=== PATIENT | female | born 1945 | race Caucasian/White ===

== ENCOUNTER → 2016-04-26 | Outpatient (CLI) | payer MEDICARE, OTHER ==
[2016-04-26 09:38] LABS: CHLORIDE,CL 105 mmol/L (98-110); SODIUM,NA 142 mmol/L (136-146)
== END ==
LOC: MW.CHIM 08:45
PROVIDERS: ATTEND Internal Medicine
DX: E78.5 Hyperlipidemia, unspecified (principal); I10 Essential (primary) hypertension; E66.9 Obesity, unspecified; E78.00 Pure hypercholesterolemia, unspecified; E11.59 Type 2 diabetes mellitus with other circulatory complications
CPT/HCPCS: 36415; 80053; 80061; 83036; 84439; 84443; 85025

== ENCOUNTER → 2016-04-27 | Outpatient (CLI) | payer MEDICARE, OTHER ==
--- NOTE | 2016-04-27 14:17 | CR ---
EXAMINATION: Two-view chest (PA and Lateral views). HISTORY: Cough. FINDINGS: The trachea is midline. The cardiomediastinal silhouette is within normal limits. No pulmonary infil trates, effusions or pneumothorax. There is a tiny calcified granuloma within the mid left lung. Osseous structures appear unremarkable. IMPRESSION: No acute cardiopulmonary process.
== END ==
LOC: MW.CHIM 12:11
PROVIDERS: ATTEND Internal Medicine
DX: R05 Cough (principal); R00.2 Palpitations; E78.5 Hyperlipidemia, unspecified; I10 Essential (primary) hypertension
CPT/HCPCS: 71020; 71020-26; 99214

== ENCOUNTER → 2016-05-05 | Outpatient (CLI) | payer MEDICARE, OTHER ==
[~2016-05-05] MED LIST: Albuterol 0.083% 2.5 MG/3 ML Neb Soln NEB ONE; Albuterol 0.083% 2.5 MG/3 ML Neb Soln ONE
== END ==
LOC: MW.RT 09:08
PROVIDERS: ATTEND Internal Medicine
DX: I10 Essential (primary) hypertension (principal); R00.2 Palpitations

== ENCOUNTER → 2016-05-18 | Outpatient (CLI) | payer MEDICARE, OTHER | LOC: MW.CHIM 08:00 | PROVIDERS: ATTEND Internal Medicine | DX: R00.2 Palpitations (principal) | CPT/HCPCS: G0463 ==

== ENCOUNTER 2016-10-12 19:14 | Emergency (ER) | payer MEDICARE, OTHER ==
[2016-10-12 20:07] LABS: CHLORIDE,CL 107 mmol/L (98-110); SODIUM,NA 140 mmol/L (136-146)
--- NOTE | 2016-10-12 20:09 | EDM.PDOC ---
ED HPI GENERAL MEDICAL PROBLEM - General Chief Complaint: Cardiovascular Problem Stated Complaint: ABDOMINAL FAST HEART BEAT Time Seen by Provider: 10/12/16 19:40 Source of Information: Reports: Patient, Family History Limitations: Reports: No Limitations - History of Present Illness INITIAL COMMENTS - FREE TEXT/NARRATIVE: History of present illness: [71-year-old female comes in complaining of palpitations. Patient has had a history of the same last summer but there was self-limiting and she has been worked up with a Holter monitor where there were no events recorded. Patient indicates she can feel her heart beating strongly in her throat and she can feel when she misses beats. Patient sees Dr. Mitchell got for her cardiology issues and wanted to come in and ensure that there was nothing remiss that would require her to have an intervention.] Review of systems: As per history of present illness and below otherwise all systems reviewed and negative. Past medical history: As per history of present illness and as reviewed below otherwise noncontributory. Surgical history: As per history of present illness and as reviewed below otherwise noncontributory. Social history: No reported history of drug or alcohol abuse. Family history: As per history of present illness and as reviewed below otherwise noncontributory. Physical exam: HEENT: Atraumatic, normocephalic, pupils reactive, negative for conjunctival pallor or scleral icterus, mucous membranes moist, throat clear, neck supple, nontender, trachea midline. Lungs: Clear to auscultation, breath sounds equal bilaterally, chest nontender. Heart: S1S2, regular, negative for clicks, rubs, or JVD. Abdomen: Soft, protuberant nontender. Negative for masses or hepatosplenomegaly. Negative for costovertebral tenderness. Pelvis: Stable nontender. Genitourinary: Deferred. Rectal: Deferred. Extremities: Atraumatic, negative for cords or calf pain. Neurovascular unremarkable. Neuro: Awake, alert, oriented. Cranial nerves II through XII unremarkable. Cerebellum unremarkable. Motor and sensory unremarkable throughout. Exam nonfocal. Global assessment is benign without signs of palpitation and or arrhythmia on EKG. 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 - Related Data Allergies Allergy/AdvReac Type Severity Reaction Status Date / Time ciprofloxacin [From Cipro] Allergy Nausea Verified 10/12/16 19:19 ciprofloxacin HCl Allergy Nausea Verified 10/12/16 19:19 [From Cipro] codeine Allergy Nausea Verified 10/12/16 19:19 NSAIDS (Non-Steroidal Allergy Cannot Verified 01/18/16 19:00 Anti-Inflamma Remember Home Meds: Home Meds Acetaminophen/HYDROcodone [HYDROcodone-Acetaminophen 5-500] 1 tab PO Q4H PRN [History] Fish Oil/[place]-3 Fatty Acids [Fish Oil] 1,000 mg PO BID 09/30/13 [History] Losartan [Cozaar] 100 mg PO DAILY 09/30/13 [History] Lutein 40 mg PO DAILY 09/30/13 [History] Omeprazole 20 mg PO DAILY 09/30/13 [History] Travoprost [Travatan Z 0.004% Ophth Soln] 1 drop EYEBOTH BEDTIME 09/30/13 [ History] Zinc 50 mg PO DAILY 12/08/13 [History] amLODIPine [Norvasc] 2.5 mg PO BEDTIME 02/05/15 [History] Diclofenac Topical Ointment 1 TOP BID 01/18/16 [History] Furosemide [Lasix] 20 mg PO DAILY 01/18/16 [History] Lactobacillus Combo No.10 [Probiotic] 1 each PO DAILY 01/18/16 [History] atorvaSTATin [Lipitor] 10 mg PO DAILY 01/18/16 [History] metroNIDAZOLE [Flagyl] 500 mg PO Q8H #36 tablet 01/20/16 [Rx] Past Medical History HEENT History: Reports: Glaucoma Cardiovascular History: Reports: Hypertension Respiratory History: Reports: None Gastrointestinal History: Reports: Diverticulosis, Irritable Bowel Syndrome, Other (See Below) Other Gastrointestinal History: Diverticulitis about a month ago 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: Musculoskeletal History: Reports: Arthritis, Back Pain, Chronic Other Musculoskeletal History: chronic back and shoulder pain Neurological History: Reports: None Psychiatric History: Reports: None Endocrine/Metabolic History: Reports: Obesity/BMI 30+ Hematologic History: Reports: Blood Transfusion(s) Other Hematologic History: blood transfusion following hysterectomy Immunologic History: Reports: None Oncologic (Cancer) History: 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, Other (See Below) Other Oncologic History: Endomitrial Dermatologic History: Reports: None - Past Surgical History HEENT Surgical History: Reports: Cataract Surgery Female Surgical History: 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 Biopsy, Hysterectomy, Other (See Below) Musculoskeletal Surgical History: Reports: Hip Replacement, Knee Replacement Social & Family History - Family History Cardiac: Reports: Hypertension, [place] Neurological: Reports: TIA - Tobacco Use Smoking Status *Q: Never Smoker Second Hand Smoke Exposure: No - Caffeine Use Caffeine Use: Reports: Coffee - Alcohol Use Days Per Week of Alcohol Use: 0 - Recreational Drug Use Recreational Drug Use: No ED ROS GENERAL - Review of Systems Review Of Systems: See Below (See history of present illness) ED EXAM, GENERAL - Physical Exam Exam: See Below (See history of present illness) Course - Vital Signs Last Recorded V/S: Last Vital Signs Temp 36.8 C 10/12/16 19:14 Pulse 104 H 10/12/16 19:14 Resp 18 10/12/16 19:14 BP 185/86 H 10/12/16 19:14 Pulse Ox 95 10/12/16 19:14 - Orders/Labs/Meds Orders: Active Orders 24 hr Category Date Time Status Cardiac Monitoring [RC] . DIRECTED Care 10/12/16 19:35 Active EKG Documentation Completion [RC] STAT Care 10/12/16 19:14 Active Chest 1V Frontal [CR] Stat Exams 10/12/16 19:35 Ordered COMPREHENSIVE METABOLIC PN,CMP [CHEM] Stat Lab 10/12/16 19:40 Received Labs: Laboratory Tests 10/12/16 10/12/16 10/12/16 Range/Units 19:40 19:40 19:40 WBC 11.32 H (4.0-11.0) K/uL RBC 4.37 (4.30-5.90) M/uL Hgb 12.5 (12.0-16.0) g/dL Hct 38.8 (36.0-46.0) % MCV 88.8 (80.0-98.0) fL MCH 28.6 (27.0-32.0) pg MCHC 32.2 (31.0-37.0) g/dL RDW Std Deviation 52.3 (28.0-62.0) fl RDW Coeff of Navin 16 H (11.0-15.0) % Plt Count 336 (150-400) K/uL MPV 10.40 (7.40-12.00) fL Neut % (Auto) 61.2 (48.0-80.0) % Lymph % (Auto) 28.1 (16.0-40.0) % [place] % (Auto) 8.7 (0.0-15.0) % Eos % (Auto) 1.8 (0.0-7.0) % Baso % (Auto) 0.2 (0.0-1.5) % Neut # (Auto) 6.9 H (1.4-5.7) K/uL Lymph # (Auto) 3.2 H (0.6-2.4) K/uL [place] # (Auto) 1.0 H (0.0-0.8) K/uL Eos # (Auto) 0.2 (0.0-0.7) K/uL Baso # (Auto) 0.0 (0.0-0.1) K/uL Nucleated RBC % 0.0 /100WBC Nucleated RBCs # 0 K/uL INR 0.98 (0.86-1.11) Troponin I < 0.10 (0.0-0.29) NG/ML Departure - Departure Time of Disposition: 20:18 Disposition: Home, Self-Care 01 Condition: Good Clinical Impression: Heart palpitations Referrals: PCP,None [Primary Care Provider] - Additional Instructions: The following information is given to patients seen in the emergency department who are being discharged to home. This information is to outline your options for follow-up care. We provide all patients seen in our emergency department with a follow-up referral. The need for follow-up, as well as the timing and circumstances, are variable depending upon the specifics of your emergency department visit. If you don't have a primary care physician on staff, we will provide you with a referral. We always advise you to contact your personal physician following an emergency department visit to inform them of the circumstance of the visit and for follow-up with them and/or the need for any referrals to a consulting specialist. The emergency department will also refer you to a specialist when appropriate. This referral assures that you have the opportunity for follow-up care with a specialist. All of these measure are taken in an effort to provide you with optimal care, which includes your follow-up. Under all circumstances we always encourage you to contact your private physician who remains a resource for coordinating your care. When calling for follow-up care, please make the office aware that this follow-up is from your recent emergency room visit. If for any reason you are refused follow-up, please contact the [facility] Emergency Department at and asked to speak to the emergency department charge nurse. Follow-up with primary care provider one to 2 days Follow up with your experienced truck driver as soon as possible please call in the morning for a first available appointment to discuss this intermittent palpitations that you're experiencing again Return to ED as needed as discussed
[2016-10-12 21:54] VITALS: BP 139/65
--- NOTE | 2016-10-13 17:10 | CR ---
EXAM DATE: 10/12/16 PATIENT'S AGE: 71 Patient: CARMEN JENKINS Facility: [place], [place] Site . Site : 1945 Study: XRay Chest [id number] 8:37:35 PM Ordering Physician: Nella Zapata Final Report: Indication: Palpitations. Technique: Chest 1 view Comparison: 04/27/2016. Findings/Impression: Cardiovascular and mediastinum: Stable cardiomediastinal silhouette. An ectatic , unfolded aorta again seen. Lungs and pleural space: No consolidation or pleural effusions. A left midlung granuloma again seen. Bones and soft tissues: No significant change. Dictated by Sidney Gale MD @ 10/12/2016 8:55:37 PM Dictated by: Sidney Gale MD @ 10/12/2016 20:55:42 (Electronic Signature) Report Signed by Proxy. [facility] PS[facility] CENTERShanique
== END 2016-10-12 21:22 | disposition home or self-care (01) ==
LOC: MW.ED 19:14
DX: R00.2 Palpitations (principal); I10 Essential (primary) hypertension; M19.90 Unspecified osteoarthritis, unspecified site; E66.9 Obesity, unspecified; Z90.710 Acquired absence of both cervix and uterus; Z85.3 Personal history of malignant neoplasm of breast; Z98.49 Cataract extraction status, unspecified eye; Z96.659 Presence of unspecified artificial knee joint; Z96.649 Presence of unspecified artificial hip joint; Z79.899 Other long term (current) drug therapy; Z88.1 Allergy status to other antibiotic agents; Z88.5 Allergy status to narcotic agent; Z88.8 Allergy status to other drugs, medicaments and biological substances; Z68.41 Body mass index [BMI] 40.0-44.9, adult
CPT/HCPCS: 36415; 71010; 71010-26; 80053; 84484; 85025; 85610; 93005; 99283; 99285-25

== ENCOUNTER 2017-03-29 15:06 | Emergency (ER) | payer MEDICARE, OTHER ==
[2017-03-29] MEDS ORDERED: Ondansetron 4 MG/2 ML SDV IVPUSH ONE (15:10)
[2017-03-29] MEDS ORDERED: Sodium Chloride 0.9% 500 ML IV SCH (15:15)
[2017-03-29] MEDS ORDERED: Morphine 2 MG/ML Syringe IVPUSH ONE (15:26)
--- NOTE | 2017-03-29 15:34 | EDM.PDOC ---
ED HPI GENERAL MEDICAL PROBLEM - General Chief Complaint: Abdominal Pain Stated Complaint: ABDOMINAL PAIN Time Seen by Provider: 03/29/17 15:19 Source of Information: Reports: Patient History Limitations: Reports: No Limitations - History of Present Illness INITIAL COMMENTS - FREE TEXT/NARRATIVE: HISTORY AND PHYSICAL: History of present illness: Patient is a 71-year-old female who presents to the emergency room with complaints of lower quadrant pain. She states she has a history of diverticulitis with her last flare being January 2016. She states this pain is very similar and is requesting oral antibiotics. She reports she has been taking her [place] and topical diclofenac cream which she uses for arthritis, but medications have not touched her abdominal pain. Patient denies any fever, chills, chest pain, shortness of breath, vomiting or diarrhea. She has had some intermittent nausea but is currently free of nausea. Denies any dysuria. Noticed a small amount of blood mixed in with her stool with her last bowel movement. States her bowel movements are loose but is not described them as diarrhea. Past medical history of hypertension, glaucoma, breast and endometrial cancer, macular degeneration and arthritis. Review of systems: As per history of present illness and below otherwise all systems reviewed and negative. Past medical history: As per history of present illness and as reviewed below otherwise noncontributory. Surgical history: As per history of present illness and as reviewed below otherwise noncontributory. Social history: No reported history of drug or alcohol abuse. Family history: As per history of present illness and as reviewed below otherwise noncontributory. Physical exam: General: Well-developed and well-nourished 71-year-old female. Alert and oriented. Nontoxic appearing and in no acute distress. HEENT: Atraumatic, normocephalic, pupils reactive, negative for conjunctival pallor or scleral icterus, mucous membranes moist, throat clear, neck supple, nontender, trachea midline. Lungs: Clear to auscultation, breath sounds equal bilaterally, chest nontender. Heart: S1S2, regular rate and rhythm Abdomen: Soft, obese, nondistended, mild tenderness to LLQ. Negative for masses or hepatosplenomegaly. Negative for costovertebral tenderness. Pelvis: Stable nontender. Genitourinary: Deferred. Rectal: Deferred. Extremities: Atraumatic, negative for cords or calf pain. Neurovascular unremarkable. Neuro: Awake, alert, oriented. Cranial nerves II through XII unremarkable. Cerebellum unremarkable. Motor and sensory unremarkable throughout. Exam nonfocal. WBC (16) and slightly elevated lipase. Will treat with Flagyl 500 mg 3 times a day 7 days. Augmentin twice a day 7 days (medication chosen due to Cipro allergy and cuurent home medication interactions). Supportive care measures were discussed with patient. Encouraged her to have follow-up with her primary care provider in the next couple days. She voices understanding and is agreeable to plan of care. She denies any further questions at this time. Diagnostics: CBC, CMP, amylase, lipase, UA, CT abdomen and pelvis Therapeutics: IV fluid, morphine, zofran Impression: 1. Abdominal Pain 2. Diverticulitis Plan: 1. Please take the antibiotics as discussed, Augmentin and Flagyl. (NO ALCOHOL consumption while taking Flagyl and 1-2 days post medication, as it may cause severe GI upset). [place] diet for the next 24-48 hours. Encourage plenty of fluids to prevent dehydration. 2. Follow-up with your primary caregiver in the next 2-3 days. Return to the ED as needed and as discussed. Definitive disposition and diagnosis as appropriate pending reevaluation and review of above. Duration: Day(s): Location: Reports: Abdomen abd. pain Pain Score (Numeric/FACES): 9 - Related Data Allergies Allergy/AdvReac Type Severity Reaction Status Date / Time ciprofloxacin [From Cipro] Allergy Nausea Verified 03/29/17 15:17 ciprofloxacin HCl Allergy Nausea Verified 03/29/17 15:17 [From Cipro] codeine Allergy Nausea Verified 03/29/17 15:17 NSAIDS (Non-Steroidal Allergy Cannot Verified 03/29/17 15:17 Anti-Inflamma Remember Home Meds: Home Meds Amoxicillin/Clavulanate K [Augmentin 875-125 MG] 1 tab PO BID 7 Days #14 tablet 03/29/17 [Rx] Atenolol 25 mg PO DAILY 03/29/17 [History] Dorzolamide [Trusopt 2% Ophth Soln] 10 ml OP BID 03/29/17 [History] Furosemide [Lasix] 20 mg PO DAILY 03/29/17 [History] Hydrocodone/Acetaminophen [Hydrocodon-Acetaminophen 5-300] 1 each PO DAILY 03/29 [History] Losartan [Cozaar] 100 mg PO DAILY 03/29/17 [History] Timolol [Betimol] 1 drop OP BID 03/29/17 [History] Travoprost [Travatan Z 0.004% Ophth Soln] 1 drop OP BEDTIME 03/29/17 [History] metroNIDAZOLE [Flagyl] 500 mg PO TID 7 Days #21 tab 03/29/17 [Rx] Past Medical History HEENT History: Reports: Glaucoma Cardiovascular History: Reports: Hypertension Respiratory History: Reports: None Gastrointestinal History: Reports: Diverticulosis, Irritable Bowel Syndrome, Other (See Below) Other Gastrointestinal History: Diverticulitis about a month ago 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: Musculoskeletal History: Reports: Arthritis, Back Pain, Chronic Other Musculoskeletal History: chronic back and shoulder pain Neurological History: Reports: None Psychiatric History: Reports: None Endocrine/Metabolic History: Reports: Obesity/BMI 30+ Hematologic History: Reports: Blood Transfusion(s) Other Hematologic History: blood transfusion following hysterectomy Immunologic History: Reports: None Oncologic (Cancer) History: 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, Other (See Below) Other Oncologic History: Endomitrial Dermatologic History: Reports: None - Past Surgical History HEENT Surgical History: Reports: Cataract Surgery Female Surgical History: 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 Biopsy, Hysterectomy, Other (See Below) Musculoskeletal Surgical History: Reports: Hip Replacement, Knee Replacement Social & Family History - Family History Cardiac: Reports: Hypertension, [place] Neurological: Reports: TIA - Tobacco Use Smoking Status *Q: Never Smoker Second Hand Smoke Exposure: No - Caffeine Use Caffeine Use: Reports: Coffee - Alcohol Use Days Per Week of Alcohol Use: 0 - Recreational Drug Use Recreational Drug Use: No ED ROS GENERAL - Review of Systems Review Of Systems: ROS reveals no pertinent complaints other than HPI. ED EXAM, GI/ABD - Physical Exam Exam: See Below (See dictation) Course - Vital Signs Last Recorded V/S: Last Vital Signs Temp 97.2 F 03/29/17 15:18 Pulse 64 03/29/17 17:10 Resp 14 03/29/17 17:10 BP 179/79 H 03/29/17 17:10 Pulse Ox 93 L 03/29/17 17:10 - Orders/Labs/Meds Orders: Active Orders 24 hr Category Date Time Status Abdomen Pelvis w Cont [CT] Stat Exams 03/29/17 15:10 Taken Sodium Chloride 0.9% [Normal Saline] 500 ml Med 03/29/17 15:15 Active IV STAT Medication Orders Sodium Chloride (Normal Saline) 500 mls @ 999 mls/hr IV STAT OPHELIA Last Admin: 03/29/17 15:34 Dose: 999 mls/hr Labs: Laboratory Tests 03/29/17 03/29/17 03/29/17 Range/Units 15:30 15:30 16:41 WBC 16.24 H (4.0-11.0) K/uL RBC 4.64 (4.30-5.90) M/uL Hgb 13.2 (12.0-16.0) g/dL Hct 41.0 (36.0-46.0) % MCV 88.4 (80.0-98.0) fL MCH 28.4 (27.0-32.0) pg MCHC 32.2 (31.0-37.0) g/dL RDW Std Deviation 53.1 (28.0-62.0) fl RDW Coeff of Navin 16 H (11.0-15.0) % Plt Count 330 (150-400) K/uL MPV 10.80 (7.40-12.00) fL Neut % (Auto) 69.0 (48.0-80.0) % Lymph % (Auto) 19.6 (16.0-40.0) % [place] % (Auto) 10.0 (0.0-15.0) % Eos % (Auto) 1.2 (0.0-7.0) % Baso % (Auto) 0.2 (0.0-1.5) % Neut # (Auto) 11.2 H (1.4-5.7) K/uL Lymph # (Auto) 3.2 H (0.6-2.4) K/uL [place] # (Auto) 1.6 H (0.0-0.8) K/uL Eos # (Auto) 0.2 (0.0-0.7) K/uL Baso # (Auto) 0.0 (0.0-0.1) K/uL Nucleated RBC % 0.0 /100WBC Nucleated RBCs # 0 K/uL Sodium 138 (136-146) mmol/L Potassium 4.4 (3.5-5.1) mmol/L Chloride 105 (98-110) mmol/L Carbon Dioxide 24 (21-31) mmol/L BUN 17 (6.0-23.0) mg/dL Creatinine 0.7 (0.6-1.5) mg/dL Est Cr Clr Drug Dosing 52.18 mL/min Estimated GFR (MDRD) > 60.0 ml/min Glucose 103 (60-110) mg/dL Calcium 9.8 (8.8-10.8) mg/dL Total Bilirubin 0.4 (0.1-1.5) mg/dL AST 22 (5-40) IU/L ALT 24 (8-54) IU/L Alkaline Phosphatase 134 (40-150) Total Protein 8.1 H (6.0-8.0) g/dL Albumin 4.2 (3.4-4.8) g/dL Globulin 3.9 H (2.0-3.5) g/dL Albumin/Globulin Ratio 1.1 L (1.3-2.8) Amylase 70 (10-90) U/L Lipase 89 H (7-80) U/L Urine Color YELLOW Urine Appearance CLEAR Urine pH 6.5 (5.0-8.0) Ur Specific [place] 1.010 (1.001-1.035) Urine Protein NEGATIVE (NEGATIVE) mg/dL Urine Glucose (UA) NEGATIVE (NEGATIVE) mg/dL Urine Ketones NEGATIVE (NEGATIVE) mg/dL Urine Occult Blood NEGATIVE (NEGATIVE) Urine Nitrite NEGATIVE (NEGATIVE) Urine Bilirubin NEGATIVE (NEGATIVE) Urine Urobilinogen 0.2 (<2.0) EU/dL Ur Leukocyte Esterase NEGATIVE (NEGATIVE) Urine RBC 0-1 (0-2/HPF) Urine WBC 0-2 (0-5/HPF) Ur Epithelial Cells RARE (NONE-FEW) Urine Bacteria RARE (NEGATIVE) Meds: Medications Generic Name Dose Route Start Last Admin Trade Name Freq PRN Reason Stop Dose Admin Sodium Chloride 500 mls @ 999 mls/hr 03/29/17 15:15 03/29/17 15:34 Normal Saline IV 999 mls/hr STAT OPHELIA Administration Discontinued Medications Generic Name Dose Route Start Last Admin Trade Name Freq PRN Reason Stop Dose Admin Iopamidol 100 ml 03/29/17 16:28 03/29/17 16:33 Isovue Multipack-370 (76%) IVPUSH 03/29/17 16:29 100 ml ONETIME STA Administration Morphine Sulfate 2 mg 03/29/17 15:26 03/29/17 15:34 Morphine IVPUSH 03/29/17 15:27 2 mg ONETIME ONE Administration Ondansetron HCl 4 mg 03/29/17 15:10 03/29/17 15:34 Zofran IVPUSH 03/29/17 15:11 4 mg ONETIME ONE Administration Departure - Departure Time of Disposition: 17:58 Disposition: Home, Self-Care 01 Clinical Impression: Diverticulitis - Discharge Information Prescriptions: Amoxicillin/Clavulanate K [Augmentin 875-125 MG] 1 tab PO BID 7 Days #14 tablet metroNIDAZOLE [Flagyl] 500 mg PO TID 7 Days #21 tab Referrals: Steven Mitchell MD [Primary Care Provider] - Forms: ED Department Discharge Additional Instructions: My general discharge The following information is given to patients seen in the emergency department who are being discharged to home. This information is to outline your options for follow-up care. We provide all patients seen in our emergency department with a follow-up referral. The need for follow-up, as well as the timing and circumstances, are variable depending upon the specifics of your emergency department visit. If you don't have a primary care physician on staff, we will provide you with a referral. We always advise you to contact your personal physician following an emergency department visit to inform them of the circumstance of the visit and for follow-up with them and/or the need for any referrals to a consulting specialist. The emergency department will also refer you to a specialist when appropriate. This referral assures that you have the opportunity for follow-up care with a specialist. All of these measure are taken in an effort to provide you with optimal care, which includes your follow-up. Under all circumstances we always encourage you to contact your private physician who remains a resource for coordinating your care. When calling for follow-up care, please make the office aware that this follow-up is from your recent emergency room visit. If for any reason you are refused follow-up, please contact the [facility] Emergency Department at and asked to speak to the emergency department charge nurse. [facility] [address] [place] [id number] 1. Please take the antibiotics as discussed, Augmentin and Flagyl. (NO ALCOHOL consumption while taking Flagyl and 1-2 days post medication, as it may cause severe GI upset). [place] diet for the next 24-48 hours. Encourage plenty of fluids to prevent dehydration. 2. Follow-up with your primary caregiver in the next 2-3 days. Return to the ED as needed and as discussed. - My Orders Last 24 Hours: My Active Orders 03/29/17 15:10 Abdomen Pelvis w Cont [CT] Stat 03/29/17 15:15 Sodium Chloride 0.9% [Normal Saline] 500 ml IV STAT - Assessment/Plan Last 24 Hours: My Active Orders 03/29/17 15:10 Abdomen Pelvis w Cont [CT] Stat 03/29/17 15:15 Sodium Chloride 0.9% [Normal Saline] 500 ml IV STAT
[2017-03-29 16:01] LABS: CHLORIDE,CL 105 mmol/L (98-110); SODIUM,NA 138 mmol/L (136-146)
[2017-03-29] MEDS ORDERED: Iopamidol 755 MG/ML 500 ML Multipack Bottle IVPUSH STA (16:28)
[2017-03-29 18:07] VITALS: BP 172/75
--- NOTE | 2017-03-30 13:32 | CT ---
EXAM DATE: 03/29/17 PATIENT'S AGE: 71 Patient: CARMEN JENKINS Facility: [place], [place] Site . Site : 1945 Study: CT Abdomen/Pelvis [id number]/21/2018 4:53:47 PM Ordering Physician: Doctor Paul Final Report: INDICATION: Left lower quadrant pain TECHNIQUE: CT abdomen and pelvis acquired with IV contrast. COMPARISON: 01/18/2016 FINDINGS: Lower chest: A 5 millimeter posteromedial left lower lobe nodule again seen on image 19, apparently slightly decreased in prominence. Liver: Unremarkable. Spleen: Unremarkable. Pancreas: Unremarkable. Gallbladder and bile ducts: Cholecystectomy. Central biliary dilatation again seen, slightly increased in prominence, with the proximal extrahepatic duct measuring 1.6 centimeters. Adrenal glands: A 7 millimeter fat attenuation right adrenal nodule again seen compatible with a small myelolipoma. Kidneys: A ptotic right kidney. No hydronephrosis. A 9 millimeter fat attenuation lesion in the left renal upper pole again seen, compatible with a small angiomyolipoma. Additional subcentimeter renal low-density lesions, too small to characterize, statistically representing cysts. Perirenal changes, nonspecific. GI tract: Prominence of the gastric antral wall could be related to incomplete distention. No mechanical bowel obstruction. A normal appendix. Colonic diverticulosis with a segment of wall thickening and adjacent stranding in the distal descending/proximal sigmoid colon, consistent with diverticulitis. Vascular structures: Unremarkable. Lymph nodes: No abnormally enlarged lymph nodes. Scattered subcentimeter pelvic and mesenteric lymph nodes are presumably reactive. Miscellaneous: Small fluid in the inferior left pericolic gutter and left pelvis. No free air. A fat attenuation area again seen in the lower chest right paraspinal musculature compatible with a lipoma. Pelvic Organs: Hysterectomy. No gross bladder abnormality seen. Bones: A right hip arthroplasty. Mild anterolisthesis of L4 on L5, degenerative. IMPRESSION: Diverticulitis in the distal descending/proximal sigmoid colon. Biliary dilatation could be related to a postcholecystectomy state, however appears mildly increased in prominence. Correlate clinically. Other findings as above. Dictated by Sidney Gale MD @ 03/29/2017 5:50:06 PM Dictated by: Sidney Gale MD @ 03/29/2017 17:50:13 (Electronic Signature) Report Signed by Proxy. MTDD
== END 2017-03-29 18:08 | disposition home or self-care (01) ==
LOC: MW.ED 15:06
DX: K57.32 Diverticulitis of large intestine without perforation or abscess without bleeding (principal); I10 Essential (primary) hypertension; Z88.1 Allergy status to other antibiotic agents; Z88.5 Allergy status to narcotic agent; Z79.899 Other long term (current) drug therapy
CPT/HCPCS: 36415; 74177; 80053; 81001; 82150; 83690; 85025; 96361; 96374; 96375; 99284; J2270; J2405; J7040; Q9967

== ENCOUNTER 2017-10-20 11:35 | Emergency (ER) | payer MEDICARE, OTHER ==
[2017-10-20] MEDS ORDERED: Sodium Chloride 0.9% 10 ML Syringe FLUSH PRN (12:01)
[2017-10-20] MEDS ORDERED: Sodium Chloride 0.9% 2.5 ML Syringe FLUSH PRN (12:01)
[2017-10-20] MEDS ORDERED: Aspirin 81 MG Tab.Chew PO ONE (12:24)
[2017-10-20 12:42] LABS: CHLORIDE,CL 104 mmol/L (98-107); SODIUM,NA 139 mmol/L (136-145)
[2017-10-20 12:47] VITALS: BP 169/70
--- NOTE | 2017-10-20 13:12 | EDM.PDOC ---
ED HPI GENERAL MEDICAL PROBLEM - General Chief Complaint: Cardiovascular Problem Stated Complaint: IRREGULAR HEARTBEAT Time Seen by Provider: 10/20/17 11:38 Source of Information: Reports: Patient History Limitations: Reports: No Limitations - History of Present Illness INITIAL COMMENTS - FREE TEXT/NARRATIVE: History of present illness: []Patient has been feeling an irregular heartbeat for 2 days. She denies any chest pain or shortness of breath, fevers, chills, cough or recent illness. Patient states that she has been in the ER before has an abnormal EKG looks like previous heart attack and was sent to [place] because of this. She had a workup there showed no heart blockage or previous signs or heart attack. Review of systems: As per history of present illness and below otherwise all systems reviewed and negative. Past medical history: As per history of present illness and as reviewed below otherwise noncontributory. Surgical history: As per history of present illness and as reviewed below otherwise noncontributory. Social history: No reported history of drug or alcohol abuse. Family history: As per history of present illness and as reviewed below otherwise noncontributory. Physical exam: General: Well developed, well nourished in NAD HEENT: Atraumatic, normocephalic, pupils reactive, negative for conjunctival pallor or scleral icterus, mucous membranes moist, throat clear, neck supple, nontender, trachea midline. Lungs: Clear to auscultation, breath sounds equal bilaterally, chest nontender. Heart: S1S2, regular, negative for clicks, rubs, or JVD. Abdomen: Soft, nondistended, nontender. Negative for masses or hepatosplenomegaly. Negative for costovertebral tenderness. Pelvis: Stable nontender. Genitourinary: Deferred. Rectal: Deferred. Extremities: Atraumatic, negative for cords or calf pain. Neurovascular unremarkable. Neuro: Awake, alert, oriented. Cranial nerves II through XII unremarkable. Cerebellum unremarkable. Motor and sensory unremarkable throughout. Exam nonfocal. Skin:warm and dry Diagnostics: EKG, CBC, chemistry, troponin Therapeutics: Aspirin, observation ED Course: Unremarkable Impression: Palpitations Prescriptions: None Plan: Follow-up PMD for Holter monitoring Definitive disposition and diagnosis as appropriate pending reevaluation and review of above. - Related Data Allergies Allergy/AdvReac Type Severity Reaction Status Date / Time ciprofloxacin [From Cipro] Allergy Nausea Verified 10/20/17 11:57 ciprofloxacin HCl Allergy Nausea Verified 10/20/17 11:57 [From Cipro] codeine Allergy Nausea Verified 10/20/17 11:57 NSAIDS (Non-Steroidal Allergy Cannot Verified 10/20/17 11:57 Anti-Inflamma Remember Home Meds: Home Meds Atenolol 1 tab PO DAILY 03/29/17 [History] Dorzolamide [Trusopt 2% Ophth Soln] 10 ml OP BID 03/29/17 [History] Furosemide [Lasix] 1 tab PO DAILY 03/29/17 [History] Hydrocodone/Acetaminophen [Hydrocodon-Acetaminophen 5-300] 1 tab PO DAILY PRN [History] Losartan [Cozaar] 1 tab PO DAILY 03/29/17 [History] Timolol [Betimol] 1 drop OP BID 03/29/17 [History] Travoprost [Travatan Z 0.004% Ophth Soln] 1 drop OP BEDTIME 03/29/17 [History] Cholecalciferol (Vitamin D3) [Vitamin D3] 1 tab PO DAILY 09/01/17 [History] Fish Oil/[place]-3 Fatty Acids [Fish Oil 1,000 MG] 1 cap PO DAILY 09/01/17 [ History] L.acidoph,Paracasei, B.lactis [Probiotic] 1 tab PO DAILY 09/01/17 [History] Lutein 1 tab PO DAILY 09/01/17 [History] Omeprazole 1 cap PO DAILY 09/01/17 [History] Ubidecarenone [Coq10] 1 tab PO DAILY 09/01/17 [History] Zinc 1 tab PO DAILY 09/01/17 [History] atorvaSTATin [Lipitor] 1 tab PO DAILY 09/01/17 [History] Past Medical History HEENT History: Reports: Glaucoma, Macular Degeneration Cardiovascular History: Reports: High Cholesterol, Hypertension Respiratory History: Reports: None Gastrointestinal History: Reports: Diverticulosis, Irritable Bowel Syndrome, Other (See Below) Other Gastrointestinal History: Diverticulitis about a month ago 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: Musculoskeletal History: Reports: Arthritis, Back Pain, Chronic Other Musculoskeletal History: chronic back and shoulder pain Neurological History: Reports: None Psychiatric History: Reports: None Endocrine/Metabolic History: Reports: Obesity/BMI 30+ Hematologic History: Reports: Blood Transfusion(s) Other Hematologic History: blood transfusion following hysterectomy Immunologic History: Reports: None Oncologic (Cancer) History: 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, Other (See Below) Other Oncologic History: Endomitrial Dermatologic History: Reports: None - Infectious Disease History Infectious Disease History: Reports: Chicken Pox, Measles - Past Surgical History HEENT Surgical History: Reports: Cataract Surgery Female Surgical History: 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 Biopsy, Hysterectomy, Other (See Below) Musculoskeletal Surgical History: Reports: Hip Replacement, Knee Replacement Other Musculoskeletal Surgeries/Procedures:: R Hip, 2 half knees Social & Family History - Family History Family Medical History: Noncontributory Cardiac: Reports: Hypertension, [place] Neurological: Reports: TIA - Tobacco Use Smoking Status *Q: Former Smoker Used Tobacco, but Quit: Yes Month/Year Tobacco Last Used: 33 - Caffeine Use Caffeine Use: Reports: Coffee, Tea - Recreational Drug Use Recreational Drug Use: No ED ROS GENERAL - Review of Systems Review Of Systems: ROS reveals no pertinent complaints other than HPI. ED EXAM, GENERAL - Physical Exam Exam: See Below (See history of present illness) Course - Vital Signs Last Recorded V/S: Last Vital Signs Temp 98.9 F 10/20/17 11:52 Pulse 78 10/20/17 12:46 Resp 18 10/20/17 12:46 BP 169/70 H 10/20/17 12:46 Pulse Ox 97 10/20/17 12:46 - Orders/Labs/Meds Orders: Active Orders 24 hr Category Date Time Status EKG Documentation Completion [RC] STAT Care 10/20/17 12:01 Active Sodium Chloride 0.9% [Saline Flush] Med 10/20/17 12:01 Active 10 ml FLUSH ASDIRECTED PRN Sodium Chloride 0.9% [Saline Flush] Med 10/20/17 12:01 Active 2.5 ml FLUSH ASDIRECTED PRN Saline Lock Insert [OM.PC] Stat Oth 10/20/17 12:01 Ordered Medication Orders Sodium Chloride (Saline Flush) 10 ml FLUSH ASDIRECTED PRN PRN Reason: Keep Vein Open Last Admin: 10/20/17 12:45 Dose: 10 ml Sodium Chloride (Saline Flush) 2.5 ml FLUSH ASDIRECTED PRN PRN Reason: Keep Vein Open Last Admin: 10/20/17 12:45 Dose: 2.5 ml Labs: Laboratory Tests 10/20/17 10/20/17 Range/Units 11:50 11:50 WBC 10.40 (4.0-11.0) K/uL RBC 4.72 (4.30-5.90) M/uL Hgb 13.6 (12.0-16.0) g/dL Hct 42.0 (36.0-46.0) % MCV 89.0 (80.0-98.0) fL MCH 28.8 (27.0-32.0) pg MCHC 32.4 (31.0-37.0) g/dL RDW Std Deviation 51.5 (28.0-62.0) fl RDW Coeff of Navin 16 H (11.0-15.0) % Plt Count 376 (150-400) K/uL MPV 10.50 (7.40-12.00) fL Neut % (Auto) 55.1 (48.0-80.0) % Lymph % (Auto) 33.1 (16.0-40.0) % [place] % (Auto) 10.2 (0.0-15.0) % Eos % (Auto) 1.3 (0.0-7.0) % Baso % (Auto) 0.3 (0.0-1.5) % Neut # (Auto) 5.7 (1.4-5.7) K/uL Lymph # (Auto) 3.4 H (0.6-2.4) K/uL [place] # (Auto) 1.1 H (0.0-0.8) K/uL Eos # (Auto) 0.1 (0.0-0.7) K/uL Baso # (Auto) 0.0 (0.0-0.1) K/uL Nucleated RBC % 0.0 /100WBC Nucleated RBCs # 0 K/uL Sodium 139 (136-145) mmol/L Potassium 4.0 (3.5-5.1) mmol/L Chloride 104 (98-107) mmol/L Carbon Dioxide 25.2 (21.0-32.0) mmol/L BUN 16 (7.0-18.0) mg/dL Creatinine 0.8 (0.6-1.0) mg/dL Est Cr Clr Drug Dosing 44.99 mL/min Estimated GFR (MDRD) > 60.0 ml/min Glucose 106 (74-106) mg/dL Calcium 9.7 (8.5-10.1) mg/dL Total Bilirubin 0.4 (0.2-1.0) mg/dL AST 20 (15-37) IU/L ALT 39 (14-63) IU/L Alkaline Phosphatase 130 H (46-116) U/L Troponin I < 0.050 (0.000-0.056) ng/mL Total Protein 8.0 (6.4-8.2) g/dL Albumin 3.7 (3.4-5.0) g/dL Globulin 4.3 H (2.0-3.5) g/dL Albumin/Globulin Ratio 0.9 L (1.3-2.8) TSH 3rd Generation 3.00 (0.36-3.74) uIU/mL Meds: Medications Generic Name Dose Route Start Last Admin Trade Name Freq PRN Reason Stop Dose Admin Sodium Chloride 10 ml 10/20/17 12:01 10/20/17 12:45 Saline Flush FLUSH 10 ml ASDIRECTED PRN Administration Keep Vein Open Sodium Chloride 2.5 ml 10/20/17 12:01 10/20/17 12:45 Saline Flush FLUSH 2.5 ml ASDIRECTED PRN Administration Keep Vein Open Discontinued Medications Generic Name Dose Route Start Last Admin Trade Name Freq PRN Reason Stop Dose Admin Aspirin 324 mg 10/20/17 12:24 10/20/17 12:45 Aspirin PO 10/20/17 12:25 324 mg ONETIME ONE Administration Departure - Departure Time of Disposition: 13:15 Disposition: Home, Self-Care 01 Condition: Good Clinical Impression: Palpitations Referrals: PCP,None [Primary Care Provider] - Forms: ED Department Discharge Additional Instructions: The following information is given to patients seen in the emergency department who are being discharged to home. This information is to outline your options for follow-up care. We provide all patients seen in our emergency department with a follow-up referral. The need for follow-up, as well as the timing and circumstances, are variable depending upon the specifics of your emergency department visit. If you don't have a primary care physician on staff, we will provide you with a referral. We always advise you to contact your personal physician following an emergency department visit to inform them of the circumstance of the visit and for follow-up with them and/or the need for any referrals to a consulting specialist. The emergency department will also refer you to a specialist when appropriate. This referral assures that you have the opportunity for follow-up care with a specialist. All of these measure are taken in an effort to provide you with optimal care, which includes your follow-up. Under all circumstances we always encourage you to contact your private physician who remains a resource for coordinating your care. When calling for follow-up care, please make the office aware that this follow-up is from your recent emergency room visit. If for any reason you are refused follow-up, please contact the [facility] Emergency Department at and asked to speak to the emergency department charge nurse. Primary care for Holter monitoring return if symptoms worsen or change. [facility] [address] [place] [id number] - My Orders Last 24 Hours: My Active Orders 10/20/17 12:01 EKG Documentation Completion [RC] STAT Sodium Chloride 0.9% [Saline Flush] 10 ml FLUSH ASDIRECTED PRN Sodium Chloride 0.9% [Saline Flush] 2.5 ml FLUSH ASDIRECTED PRN Saline Lock Insert [OM.PC] Stat - Assessment/Plan Last 24 Hours: My Active Orders 10/20/17 12:01 EKG Documentation Completion [RC] STAT Sodium Chloride 0.9% [Saline Flush] 10 ml FLUSH ASDIRECTED PRN Sodium Chloride 0.9% [Saline Flush] 2.5 ml FLUSH ASDIRECTED PRN Saline Lock Insert [OM.PC] Stat
== END 2017-10-20 13:41 | disposition home or self-care (01) ==
LOC: MW.ED 11:35
DX: R00.2 Palpitations (principal); I10 Essential (primary) hypertension; E78.00 Pure hypercholesterolemia, unspecified; Z79.899 Other long term (current) drug therapy; Z87.891 Personal history of nicotine dependence; Z88.5 Allergy status to narcotic agent; Z88.8 Allergy status to other drugs, medicaments and biological substances; Z88.1 Allergy status to other antibiotic agents
CPT/HCPCS: 36415; 80053; 84443; 84484; 85025; 93005; 99285; A9270

== ENCOUNTER 2018-10-01 22:21 | Inpatient (IN) | payer MEDICARE, OTHER ==
[2018-10-01] MEDS ORDERED: Sodium Chloride 0.9% 10 ML Syringe FLUSH PRN (22:33)
[2018-10-01] MEDS ORDERED: Sodium Chloride 0.9% 2.5 ML Syringe FLUSH PRN (22:33)
[2018-10-01 23:07] LABS: CHLORIDE,CL 104 mmol/L (98-107); SODIUM,NA 140 mmol/L (136-145)
--- NOTE | 2018-10-01 23:15 | EDM.PDOC ---
ED HPI GENERAL MEDICAL PROBLEM - General Chief Complaint: Gastrointestinal Problem Stated Complaint: PT HAS RECTAL BLEEDING Time Seen by Provider: 10/01/18 23:14 Source of Information: Reports: Patient History Limitations: Reports: No Limitations - History of Present Illness INITIAL COMMENTS - FREE TEXT/NARRATIVE: HISTORY AND PHYSICAL: History of present illness: Patient is a 73-year-old female presents to the ED with complaint of bleeding per rectum. She states she felt like she needed to pas gas this evening around 10pm, states when she did this she thought she soiled herself but when she went to the bathroom she had bright red blood in her underwear. She had a bowel movement and passed bright red blood with some clots. She states she has a history of diverticulitis, she did have some left lower quadrant pain earlier this week but has mostly resolved with some mild LLQ pain. She denies fevers, chills, nausea, vomiting, chest pain, SOB, dizziness. Review of systems: As per history of present illness and below otherwise all systems reviewed and negative. Past medical history: As per history of present illness and as reviewed below otherwise noncontributory. Surgical history: As per history of present illness and as reviewed below otherwise noncontributory. Social history: No reported history of drug or alcohol abuse. Family history: As per history of present illness and as reviewed below otherwise noncontributory. Physical exam: General: Patient sitting comfortably in no acute distress and nontoxic appearing HEENT: Atraumatic, normocephalic, pupils reactive, negative for conjunctival pallor or scleral icterus, mucous membranes moist, throat clear, neck supple, nontender, trachea midline. No meningeal signs. Lungs: Clear to auscultation, breath sounds equal bilaterally, chest nontender. Heart: S1S2, regular, negative for clicks, rubs, or overt murmur. Abdomen: Mild LLQ pain to palpation Soft, nondistended. Negative for masses or hepatosplenomegaly. Negative for costovertebral tenderness. No rigidity, rebound , guarding. Pelvis: Stable nontender. Genitourinary: Deferred. Rectal: Deferred. Extremities: Atraumatic, negative for cords or calf pain. Neurovascular unremarkable. Neuro: Awake, alert, oriented. Cranial nerves II through XII unremarkable. Cerebellum unremarkable. Motor and sensory unremarkable throughout. Exam nonfocal. Notes: Discussed with Dr. Bassett, patient will be admitted to medicine with surgery consult. Diagnostics: CBC, CMP, PT/INR, CT abdomen/pelvis Therapeutics: 1L NS IV 2g Mefoxin IV Prescriptions: Impression: Bright red blood per rectum Plan: Discussed with Dr. Barry, patient will be admitted to observation with surgery consult. Definitive disposition and diagnosis as appropriate pending reevaluation and review of above. - Related Data Allergies Allergy/AdvReac Type Severity Reaction Status Date / Time ciprofloxacin [From Cipro] Allergy Nausea Verified 10/01/18 22:31 ciprofloxacin HCl Allergy Nausea Verified 10/01/18 22:31 [From Cipro] codeine Allergy Nausea Verified 10/01/18 22:31 NSAIDS (Non-Steroidal Allergy Cannot Verified 10/01/18 22:31 Anti-Inflamma Remember Home Meds: Home Meds Atenolol 25 mg PO BEDTIME 03/29/17 [History] Furosemide [Lasix] 20 mg PO DAILY 03/29/17 [History] Hydrocodone/Acetaminophen [Hydrocodon-Acetaminophen 5-300] 1 tab PO ASDIRECTED PRN 03/29/17 [History] Losartan [Cozaar] 100 mg PO DAILY 03/29/17 [History] Timolol [Betimol 0.5% Ophth Soln] 1 drop EYEBOTH BID 03/29/17 [History] Travoprost [Travatan Z 0.004% Ophth Soln] 1 drop EYEBOTH BEDTIME 03/29/17 [ History] Cholecalciferol (Vitamin D3) [Vitamin D3] 1,000 units PO DAILY 09/01/17 [History ] Fish Oil/[place]-3 Fatty Acids [Fish Oil 1,000 MG] 1 gm PO BID 09/01/17 [History] Lutein 40 mg PO DAILY 09/01/17 [History] Omeprazole 20 mg PO DAILY 09/01/17 [History] Ubidecarenone [Coq10] 50 mg PO BEDTIME 09/01/17 [History] Zinc 50 mg PO DAILY 09/01/17 [History] atorvaSTATin [Lipitor] 10 mg PO BEDTIME 09/01/17 [History] Past Medical History - Past Health History Medical/Surgical History: Denies Medical/Surgical History HEENT History: Reports: Glaucoma, Macular Degeneration, Other (See Below) Other HEENT History: Macular degeneration Cardiovascular History: Reports: High Cholesterol, Hypertension Respiratory History: Reports: None Gastrointestinal History: Reports: Diverticulosis, Irritable Bowel Syndrome, Other (See Below) Other Gastrointestinal History: Diverticulitis about a month ago Genitourinary History: Reports: 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: Musculoskeletal History: Reports: Arthritis, Back Pain, Chronic Other Musculoskeletal History: chronic back and shoulder pain Neurological History: Reports: None Psychiatric History: Reports: None Endocrine/Metabolic History: Reports: Obesity/BMI 30+ Hematologic History: Reports: Blood Transfusion(s) Other Hematologic History: blood transfusion following hysterectomy Immunologic History: Reports: None Oncologic (Cancer) History: 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, Other (See Below) Other Oncologic History: Endomitrial Dermatologic History: Reports: None - Infectious Disease History Infectious Disease History: Reports: Chicken Pox, Measles - Past Surgical History HEENT Surgical History: Reports: Cataract Surgery Female Surgical History: 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 Biopsy, Hysterectomy, Other (See Below) Other Female Surgeries/Procedures: Breast Lumpectomy Musculoskeletal Surgical History: Reports: Hip Replacement, Knee Replacement Other Musculoskeletal Surgeries/Procedures:: R Hip, 2 half knees Social & Family History - Family History Family Medical History: Noncontributory Cardiac: Reports: Hypertension, [place] Neurological: Reports: TIA - Tobacco Use Smoking Status *Q: Never Smoker - Caffeine Use Caffeine Use: Reports: Coffee, Tea - Recreational Drug Use Recreational Drug Use: No ED ROS GENERAL - Review of Systems Review Of Systems: ROS reveals no pertinent complaints other than HPI. ED EXAM, GI/ABD - Physical Exam Exam: See Below (see dictation) Course - Vital Signs Last Recorded V/S: Last Vital Signs Temp 97.9 F 10/01/18 22:21 Pulse 107 H 10/01/18 22:21 Resp 18 10/01/18 22:21 BP 198/120 H 10/01/18 22:21 Pulse Ox 96 10/01/18 22:21 - Orders/Labs/Meds Orders: Active Orders 24 hr Category Date Time Status Admission Status [Patient Status] [ADT] Stat ADT 10/01/18 23:25 Ordered Abdomen Pelvis w Cont [CT] Stat Exams 10/01/18 23:08 Ordered INR,PT,PROTHROMBIN TIME [COAG] Stat Lab 10/01/18 23:15 Ordered Sodium Chloride 0.9% [Saline Flush] Med 10/01/18 22:33 Active 10 ml FLUSH ASDIRECTED PRN Sodium Chloride 0.9% [Saline Flush] Med 10/01/18 22:33 Active 2.5 ml FLUSH ASDIRECTED PRN cefOXitin [Mefoxin in Dextrose,Iso-Osm 2 GM/50 ML] 2 gm Med 10/01/18 23:16 Ordered Premix Bag 1 bag IV ONETIME Saline Lock Insert [OM.PC] Stat Oth 10/01/18 22:33 Ordered Medication Orders Cefoxitin Sodium 2 gm/ Premix 50 mls @ 100 mls/hr IV ONETIME ONE Stop: 10/01/18 23:45 Sodium Chloride (Saline Flush) 10 ml FLUSH ASDIRECTED PRN PRN Reason: Keep Vein Open Last Admin: 10/01/18 22:41 Dose: 10 ml Sodium Chloride (Saline Flush) 2.5 ml FLUSH ASDIRECTED PRN PRN Reason: Keep Vein Open Last Admin: 10/01/18 22:41 Dose: 2.5 ml Labs: Laboratory Tests 10/01/18 10/01/18 Range/Units 22:42 22:42 WBC 11.94 H (4.0-11.0) K/uL RBC 4.56 (4.30-5.90) M/uL Hgb 13.1 (12.0-16.0) g/dL Hct 40.9 (36.0-46.0) % MCV 89.7 (80.0-98.0) fL MCH 28.7 (27.0-32.0) pg MCHC 32.0 (31.0-37.0) g/dL RDW Std Deviation 52.3 (28.0-62.0) fl RDW Coeff of Navin 16 H (11.0-15.0) % Plt Count 345 (150-400) K/uL MPV 10.40 (7.40-12.00) fL Neut % (Auto) 55.9 (48.0-80.0) % Lymph % (Auto) 32.5 (16.0-40.0) % [place] % (Auto) 9.3 (0.0-15.0) % Eos % (Auto) 2.1 (0.0-7.0) % Baso % (Auto) 0.2 (0.0-1.5) % Neut # (Auto) 6.7 H (1.4-5.7) K/uL Lymph # (Auto) 3.9 H (0.6-2.4) K/uL [place] # (Auto) 1.1 H (0.0-0.8) K/uL Eos # (Auto) 0.3 (0.0-0.7) K/uL Baso # (Auto) 0.0 (0.0-0.1) K/uL Nucleated RBC % 0.0 /100WBC Nucleated RBCs # 0 K/uL Sodium 140 (136-145) mmol/L Potassium 3.6 (3.5-5.1) mmol/L Chloride 104 (98-107) mmol/L Carbon Dioxide 26.5 (21.0-32.0) mmol/L BUN 21 H (7.0-18.0) mg/dL Creatinine 0.8 (0.6-1.0) mg/dL Est Cr Clr Drug Dosing 44.31 mL/min Estimated GFR (MDRD) > 60.0 ml/min Glucose 108 H (74-106) mg/dL Calcium 10.0 (8.5-10.1) mg/dL Total Bilirubin 0.3 (0.2-1.0) mg/dL AST 10 L (15-37) IU/L ALT 19 (14-63) IU/L Alkaline Phosphatase 123 H (46-116) U/L Total Protein 7.3 (6.4-8.2) g/dL Albumin 3.4 (3.4-5.0) g/dL Globulin 3.9 (2.6-4.0) g/dL Albumin/Globulin Ratio 0.9 (0.9-1.6) Meds: Medications Generic Name Dose Route Start Last Admin Trade Name Freq PRN Reason Stop Dose Admin Cefoxitin Sodium 2 gm/ Premix 50 mls @ 100 mls/hr 10/01/18 23:16 IV 10/01/18 23:45 ONETIME ONE Sodium Chloride 10 ml 10/01/18 22:33 10/01/18 22:41 Saline Flush FLUSH 10 ml ASDIRECTED PRN Administration Keep Vein Open Sodium Chloride 2.5 ml 10/01/18 22:33 10/01/18 22:41 Saline Flush FLUSH 2.5 ml ASDIRECTED PRN Administration Keep Vein Open Departure - Departure Time of Disposition: 23:29 Disposition: Refer to Observation Condition: Good Clinical Impression: Bright red blood per rectum - Discharge Information Referrals: Steven Mitchell MD [Primary Care Provider] - Forms: ED Department Discharge - My Orders Last 24 Hours: My Active Orders 10/01/18 22:33 Sodium Chloride 0.9% [Saline Flush] 10 ml FLUSH ASDIRECTED PRN Sodium Chloride 0.9% [Saline Flush] 2.5 ml FLUSH ASDIRECTED PRN Saline Lock Insert [OM.PC] Stat 10/01/18 23:08 Abdomen Pelvis w Cont [CT] Stat 10/01/18 23:15 INR,PT,PROTHROMBIN TIME [COAG] Stat 10/01/18 23:16 cefOXitin [Mefoxin in Dextrose,Iso-Osm 2 GM/50 ML] 2 gm Premix Bag 1 bag IV ONETIME 10/01/18 23:25 Admission Status [Patient Status] [ADT] Stat - Assessment/Plan Last 24 Hours: My Active Orders 10/01/18 22:33 Sodium Chloride 0.9% [Saline Flush] 10 ml FLUSH ASDIRECTED PRN Sodium Chloride 0.9% [Saline Flush] 2.5 ml FLUSH ASDIRECTED PRN Saline Lock Insert [OM.PC] Stat 10/01/18 23:08 Abdomen Pelvis w Cont [CT] Stat 10/01/18 23:15 INR,PT,PROTHROMBIN TIME [COAG] Stat 10/01/18 23:16 cefOXitin [Mefoxin in Dextrose,Iso-Osm 2 GM/50 ML] 2 gm Premix Bag 1 bag IV ONETIME 10/01/18 23:25 Admission Status [Patient Status] [ADT] Stat
[2018-10-01] MEDS ORDERED: cefOXitin 2 GM in Premix Bag 1 BAG IV ONE (23:16)
[2018-10-01] MEDS ORDERED: Sodium Chloride 0.9% 1,000 ML IV ONE (23:28)
--- NOTE | 2018-10-02 00:30 | CT ---
INDICATION: Rectal bleeding TECHNIQUE: CT abdomen and pelvis acquired with 100 cc Isovue 370 intravenous contrast. COMPARISON: Abdomen and pelvis CT 01/18/2018 FINDINGS: Lower chest: Linear scarring in the anterior segment right lower lobe with slight bronchiectasis. 6 millimeter pulmonary nodule left lower lobe, no change. Liver: Unremarkable. Normal in size and attenuation. No masses. Gallbladder and bile ducts: Status post cholecystectomy. Pancreas: Unremarkable. No mass or inflammation. Spleen: Unremarkable. Normal in size. No masses. Adrenal glands: Unremarkable. No nodules. Kidneys: Symmetric enhancement without hydronephrosis. 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 GI tract: The stomach is unremarkable. There are no dilated loops of large or small intestine. Note is made of prominent colonic diverticulosis with slight fat stranding questioned adjacent to a rectosigmoid diverticulum (4, 111). Vasculature: Unremarkable. Pelvis: Contrast within the bladder. Status posthysterectomy. Bones: Status post right total hip replacement. L4-5 anterolisthesis measuring 5 millimeters. IMPRESSION: 1. Extensive colonic diverticulosis with likely mild diverticulitis at the rectosigmoid junction. 2. Other incidental findings as noted above. Please note that all CT scans at this facility use dose modulation, iterative reconstruction, and/or weight-based dosing when appropriate to reduce radiation dose to as low as reasonably achievable. Dictated by Ori Kay MD @ Oct 02 2018 12:19AM Signed by Dr. Ori Kay @ Oct 02 2018 12:28AM
[2018-10-02] MEDS: metroNIDAZOLE/Normal Saline 500 MG in Premix Bag 1 BAG IV SCH ×2 (01:15→06:47)
[2018-10-02] MEDS: Sodium Chloride 0.9% 1,000 ML IV SCH ×3 (01:17→20:45)
[2018-10-02 06:42] LABS: CHLORIDE,CL 107 mmol/L (98-107); SODIUM,NA 140 mmol/L (136-145)
[2018-10-02] MEDS: Piperacillin/Tazobactam 3.375 GM in Sodium Chloride 0.9% 100 ML IV SCH ×3 (09:58→22:15)
--- NOTE | 2018-10-02 10:46 | PCM.HP.2 ---
H&P History of Present Illness - General Date of Service: 10/02/18 Admit Problem/Dx: Admission Diagnosis/Problem Admission Diagnosis/Problem Bright red blood per rectum Source of Information: Patient History Limitations: Reports: No Limitations - History of Present Illness Initial Comments - Free Text/Narative: patient is a 73 y/o female with a PMH of glaucoma, hypercholesterolemia, IBS, c/ o bright red blood per rectum. pt. noticed bright red blood last night when she though she had soiled her self- before going to the bathroom. States toilet was red and also noticed some clots. pt. denies any pain, diarrhea or constiaption. Has had multiple episodes of diverticulitis in the past but blood per rectum was usually aaccompanied w/ abdominal pain. No abdominal pain was experienced yesterday. Last colonoscopy was 3-4 years ago showing no major pathology, per patient. ED course: started on cefoxitin, made NPO and give 1L NS. Bedside AM: pt. denies any new complaints including diarhea, constipation or blood per rectum; has not had a BM since this AM. Denies fevers, chills, BA, SOB or other new complaints. Abdomen Pain Score (Numeric/FACES): 4 - Related Data Allergies/Adverse Reactions: Allergies Allergy/AdvReac Type Severity Reaction Status Date / Time ciprofloxacin [From Cipro] Allergy Nausea Verified 10/02/18 00:10 ciprofloxacin HCl Allergy Nausea Verified 10/02/18 00:10 [From Cipro] codeine Allergy Nausea Verified 10/02/18 00:10 NSAIDS (Non-Steroidal Allergy Cannot Verified 10/02/18 00:10 Anti-Inflamma Remember Home Medications: Home Meds Atenolol 25 mg PO BEDTIME 03/29/17 [History] Furosemide [Lasix] 20 mg PO DAILY 03/29/17 [History] Hydrocodone/Acetaminophen [Hydrocodon-Acetaminophen 5-300] 1 tab PO ASDIRECTED PRN 03/29/17 [History] Losartan [Cozaar] 100 mg PO DAILY 03/29/17 [History] Timolol [Betimol 0.5% Ophth Soln] 1 drop EYEBOTH BID 03/29/17 [History] Travoprost [Travatan Z 0.004% Ophth Soln] 1 drop EYEBOTH BEDTIME 03/29/17 [ History] Cholecalciferol (Vitamin D3) [Vitamin D3] 1,000 units PO DAILY 09/01/17 [History ] Fish Oil/Burgin-3 Fatty Acids [Fish Oil 1,000 MG] 1 gm PO BID 09/01/17 [History] Lutein 40 mg PO DAILY 09/01/17 [History] Omeprazole 20 mg PO DAILY 09/01/17 [History] Ubidecarenone [Coq10] 50 mg PO BEDTIME 09/01/17 [History] Zinc 50 mg PO DAILY 09/01/17 [History] atorvaSTATin [Lipitor] 10 mg PO BEDTIME 09/01/17 [History] diphenhydrAMINE HCl [Benadryl] 50 mg PO BEDTIME 10/02/18 [History] Past Medical History - Past Health History Medical/Surgical History: Denies Medical/Surgical History HEENT History: Reports: Glaucoma, Macular Degeneration, Other (See Below) Other HEENT History: Macular degeneration Cardiovascular History: Reports: High Cholesterol, Hypertension Respiratory History: Reports: None Gastrointestinal History: Reports: Diverticulosis, Irritable Bowel Syndrome, Other (See Below) Other Gastrointestinal History: Diverticulitis about a month ago Genitourinary History: Reports: None [employer] History: Reports: Musculoskeletal History: Reports: Arthritis, Back Pain, Chronic Other Musculoskeletal History: chronic back and shoulder pain Neurological History: Reports: None Psychiatric History: Reports: None Endocrine/Metabolic History: Reports: Obesity/BMI 30+ Hematologic History: Reports: Blood Transfusion(s) Other Hematologic History: blood transfusion following hysterectomy Immunologic History: Reports: None Oncologic (Cancer) History: 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, Other (See Below) Other Oncologic History: Endomitrial Dermatologic History: Reports: None - Infectious Disease History Infectious Disease History: Reports: Chicken Pox, Measles - Past Surgical History HEENT Surgical History: Reports: Cataract Surgery Female Surgical History: 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 Biopsy, Hysterectomy, Other (See Below) Other Female Surgeries/Procedures: Breast Lumpectomy Musculoskeletal Surgical History: Reports: Hip Replacement, Knee Replacement Other Musculoskeletal Surgeries/Procedures:: R Hip, 2 half knees Social & Family History - Family History Family Medical History: Noncontributory Cardiac: Reports: Hypertension, [place] Neurological: Reports: TIA - Tobacco Use Smoking Status *Q: Never Smoker - Caffeine Use Caffeine Use: Reports: Coffee - Recreational Drug Use Recreational Drug Use: No H&P Review of Systems - Review of Systems: Review Of Systems: See Below General: Reports: No Symptoms. Denies: Fever, Chills, Weakness, Fatigue HEENT: Reports: No Symptoms Pulmonary: Reports: No Symptoms. Denies: Shortness of Breath, Wheezing, Pleuritic Chest Pain, Cough Cardiovascular: Reports: No Symptoms. Denies: Chest Pain, Palpitations Gastrointestinal: Reports: Bloody Stool. Denies: Abdominal Pain, Black Stool, Constipation, Diarrhea, Decreased Appetite, Melena, Nausea Genitourinary: Denies: Dysuria, Frequency, Burning Musculoskeletal: Reports: No Symptoms Skin: Reports: No Symptoms Psychiatric: Reports: No Symptoms Neurological: Reports: No Symptoms Exam - Exam Exam: See Below - Vital Signs Vital Signs: Last Vital Signs Temp 97.4 F 10/02/18 07:51 Pulse 75 10/02/18 07:51 Resp 16 10/02/18 07:51 BP 134/60 10/02/18 07:51 Pulse Ox 93 L 10/02/18 04:00 Weight: 207 lb 14.4 oz - Exam General: Alert, Oriented HEENT: Conjunctiva Clear, EOMI Neck: Supple, Trachea Midline Lungs: Clear to Auscultation, Normal Respiratory Effort Cardiovascular: Regular Rate, Regular Rhythm GI/Abdominal Exam: Normal Bowel Sounds, Soft, Non-Tender, No Organomegaly, No Distention. No: Guarding, Rigid, Tender, Abnormal Bowel Sounds Rectal (Female) Exam: No: Deferred Extremities: Normal Inspection, Normal Range of Motion Neurological: Cranial Nerves Intact Neuro Extensive - Mental Status: Alert, Oriented x3, Normal Mood/Affect Neuro Extensive - Motor, Sensory, Reflexes: CN II-XII Intact, Normal Gait Psychiatric: Alert, Normal Affect, Normal Mood - Patient Data Lab Results Last 24 hrs: Laboratory Results - last 24 hr 10/01/18 10/01/18 10/01/18 Range/Units 22:42 22:42 22:42 WBC 11.94 H (4.0-11.0) K/uL RBC 4.56 (4.30-5.90) M/uL Hgb 13.1 (12.0-16.0) g/dL Hct 40.9 (36.0-46.0) % MCV 89.7 (80.0-98.0) fL MCH 28.7 (27.0-32.0) pg MCHC 32.0 (31.0-37.0) g/dL RDW Std Deviation 52.3 (28.0-62.0) fl RDW Coeff of Navin 16 H (11.0-15.0) % Plt Count 345 (150-400) K/uL MPV 10.40 (7.40-12.00) fL Neut % (Auto) 55.9 (48.0-80.0) % Lymph % (Auto) 32.5 (16.0-40.0) % Johnston % (Auto) 9.3 (0.0-15.0) % Eos % (Auto) 2.1 (0.0-7.0) % Baso % (Auto) 0.2 (0.0-1.5) % Neut # (Auto) 6.7 H (1.4-5.7) K/uL Lymph # (Auto) 3.9 H (0.6-2.4) K/uL Johnston # (Auto) 1.1 H (0.0-0.8) K/uL Eos # (Auto) 0.3 (0.0-0.7) K/uL Baso # (Auto) 0.0 (0.0-0.1) K/uL Nucleated RBC % 0.0 /100WBC Nucleated RBCs # 0 K/uL INR 1.00 Sodium 140 (136-145) mmol/L Potassium 3.6 (3.5-5.1) mmol/L Chloride 104 (98-107) mmol/L Carbon Dioxide 26.5 (21.0-32.0) mmol/L BUN 21 H (7.0-18.0) mg/dL Creatinine 0.8 (0.6-1.0) mg/dL Est Cr Clr Drug Dosing 44.31 mL/min Estimated GFR (MDRD) > 60.0 ml/min Glucose 108 H (74-106) mg/dL Calcium 10.0 (8.5-10.1) mg/dL Total Bilirubin 0.3 (0.2-1.0) mg/dL AST 10 L (15-37) IU/L ALT 19 (14-63) IU/L Alkaline Phosphatase 123 H (46-116) U/L Total Protein 7.3 (6.4-8.2) g/dL Albumin 3.4 (3.4-5.0) g/dL Globulin 3.9 (2.6-4.0) g/dL Albumin/Globulin Ratio 0.9 (0.9-1.6) 10/02/18 10/02/18 Range/Units 05:46 05:46 WBC 13.69 H (4.0-11.0) K/uL RBC 3.84 L (4.30-5.90) M/uL Hgb 10.9 L (12.0-16.0) g/dL Hct 34.2 L (36.0-46.0) % MCV 89.1 (80.0-98.0) fL MCH 28.4 (27.0-32.0) pg MCHC 31.9 (31.0-37.0) g/dL RDW Std Deviation 51.4 (28.0-62.0) fl RDW Coeff of Navin 16 H (11.0-15.0) % Plt Count 279 (150-400) K/uL MPV 10.40 (7.40-12.00) fL Neut % (Auto) 79.2 (48.0-80.0) % Lymph % (Auto) 10.5 L (16.0-40.0) % Johnston % (Auto) 9.8 (0.0-15.0) % Eos % (Auto) 0.4 (0.0-7.0) % Baso % (Auto) 0.1 (0.0-1.5) % Neut # (Auto) 10.9 H (1.4-5.7) K/uL Lymph # (Auto) 1.4 (0.6-2.4) K/uL Johnston # (Auto) 1.3 H (0.0-0.8) K/uL Eos # (Auto) 0.1 (0.0-0.7) K/uL Baso # (Auto) 0.0 (0.0-0.1) K/uL Nucleated RBC % 0.0 /100WBC Nucleated RBCs # 0 K/uL INR Sodium 140 (136-145) mmol/L Potassium 3.6 (3.5-5.1) mmol/L Chloride 107 (98-107) mmol/L Carbon Dioxide 25.0 (21.0-32.0) mmol/L BUN 16 (7.0-18.0) mg/dL Creatinine 0.7 (0.6-1.0) mg/dL Est Cr Clr Drug Dosing 50.65 mL/min Estimated GFR (MDRD) > 60.0 ml/min Glucose 113 H (74-106) mg/dL Calcium 9.0 (8.5-10.1) mg/dL Total Bilirubin (0.2-1.0) mg/dL AST (15-37) IU/L ALT (14-63) IU/L Alkaline Phosphatase (46-116) U/L Total Protein (6.4-8.2) g/dL Albumin (3.4-5.0) g/dL Globulin (2.6-4.0) g/dL Albumin/Globulin Ratio (0.9-1.6) Result Diagrams: 10/02/18 05:46 10/02/18 05:46 Problem List Initiated/Reviewed/Updated: Yes Orders Last 24hrs: Active Orders 24 hr Category Date Time Status Admission Status [Patient Status] [ADT] Routine ADT 10/02/18 10:30 Active Admission Status [Patient Status] [ADT] Stat ADT 10/01/18 23:25 Active Telemetry Monitoring [Cardiac Monitoring] [RC] Q8H Care 10/02/18 00:54 Active NPO Now [Nothing per Oral Now Diet] [DIET] Diet 10/02/18 Breakfast Active HGB [HEMOGLOBIN] [HEME] Q8H Lab 10/02/18 13:00 Ordered Piperacillin/Tazobactam [Piperacil-Tazobact] 3.375 gm Med 10/02/18 09:45 Active Sodium Chloride 0.9% [Normal Saline] 100 ml IV Q6H Sodium Chloride 0.9% [Normal Saline] 1,000 ml Med 10/02/18 01:00 Active IV ASDIRECTED Sodium Chloride 0.9% [Saline Flush] Med 10/01/18 22:33 Active 10 ml FLUSH ASDIRECTED PRN Sodium Chloride 0.9% [Saline Flush] Med 10/01/18 22:33 Active 2.5 ml FLUSH ASDIRECTED PRN Saline Lock Insert [OM.PC] Stat Oth 10/01/18 22:33 Ordered Medication Orders Sodium Chloride (Normal Saline) 1,000 mls @ 125 mls/hr IV ASDIRECTED [facility] Last Admin: 10/02/18 01:17 Dose: 125 mls/hr Piperacillin Sod/Tazobactam (Sod 3.375 gm/ Sodium Chloride) 100 mls @ 200 mls/ hr IV Q6H [facility] Last Admin: 10/02/18 09:58 Dose: 200 mls/hr Sodium Chloride (Saline Flush) 10 ml FLUSH ASDIRECTED PRN PRN Reason: Keep Vein Open Last Admin: 10/01/18 22:41 Dose: 10 ml Sodium Chloride (Saline Flush) 2.5 ml FLUSH ASDIRECTED PRN PRN Reason: Keep Vein Open Last Admin: 10/01/18 22:41 Dose: 2.5 ml Assessment/Plan Comment:: 1. Hematochezia most likely secondary to diverticulitits. 2. Leukocytosis secondary to #1 3. Normocytic anemia PLAN: 1. Continue NPO, IV fluids of 125 NS 2. Started Zosyn q8hrs 3. Hgb Qhrs 4. Awaiting Dr Kraus recommendation regarding meed for scope/intervention. Will consider advancing to clear liquids in 24-hrs if deemed appropriate.
--- NOTE | 2018-10-02 10:57 | PCM.CONS ---
<Angelo Wood - Last Filed: 10/02/18 11:26> H&P History of Present Illness - General Date of Service: 10/02/18 Admit Problem/Dx: Admission Diagnosis/Problem Admission Diagnosis/Problem Bright red blood per rectum - History of Present Illness Initial Comments - Free Text/Narative: 73 y/o female with history of diverticulitis who presented to the ER complaining of rectal bleeding. Patient denies any significant abdominal pain. States she went to the bathroom and noticed bright red blood covering the toilet bowl. In addition, there were some blood clots. No nausea, vomiting, dysuria, diarrhea, vaginal bleeding. In the ER, CT abdomen showed severe colonic diverticulosis with area of inflammation near the rectosigmoid junction consistent with acute diverticulitis. She was received 1 L NS bolus and has remained hemodynamically stable. This morning the patient was in no acute distress. Denied any abdominal pain. Has been NPO overnight and has not had a bowel movement or bright red blood per rectum since 5 am this morning. Denies any nausea, vomiting, cough, chest pain, dyspnea, dysuria, diarrhea, swelling. Abdomen Pain Score (Numeric/FACES): 4 - Related Data Allergies/Adverse Reactions: Allergies Allergy/AdvReac Type Severity Reaction Status Date / Time ciprofloxacin [From Cipro] Allergy Nausea Verified 10/02/18 00:10 ciprofloxacin HCl Allergy Nausea Verified 10/02/18 00:10 [From Cipro] codeine Allergy Nausea Verified 10/02/18 00:10 NSAIDS (Non-Steroidal Allergy Cannot Verified 10/02/18 00:10 Anti-Inflamma Remember Home Medications: Home Meds Atenolol 25 mg PO BEDTIME 03/29/17 [History] Furosemide [Lasix] 20 mg PO DAILY 03/29/17 [History] Hydrocodone/Acetaminophen [Hydrocodon-Acetaminophen 5-300] 1 tab PO ASDIRECTED PRN 03/29/17 [History] Losartan [Cozaar] 100 mg PO DAILY 03/29/17 [History] Timolol [Betimol 0.5% Ophth Soln] 1 drop EYEBOTH BID 03/29/17 [History] Travoprost [Travatan Z 0.004% Ophth Soln] 1 drop EYEBOTH BEDTIME 03/29/17 [ History] Cholecalciferol (Vitamin D3) [Vitamin D3] 1,000 units PO DAILY 09/01/17 [History ] Fish Oil/[place]-3 Fatty Acids [Fish Oil 1,000 MG] 1 gm PO BID 09/01/17 [History] Lutein 40 mg PO DAILY 09/01/17 [History] Omeprazole 20 mg PO DAILY 09/01/17 [History] Ubidecarenone [Coq10] 50 mg PO BEDTIME 09/01/17 [History] Zinc 50 mg PO DAILY 09/01/17 [History] atorvaSTATin [Lipitor] 10 mg PO BEDTIME 09/01/17 [History] diphenhydrAMINE HCl [Benadryl] 50 mg PO BEDTIME 10/02/18 [History] Past Medical History - Past Health History Medical/Surgical History: Denies Medical/Surgical History HEENT History: Reports: Glaucoma, Macular Degeneration, Other (See Below) Other HEENT History: Macular degeneration Cardiovascular History: Reports: High Cholesterol, Hypertension Respiratory History: Reports: None Gastrointestinal History: Reports: Diverticulosis, Irritable Bowel Syndrome, Other (See Below) Other Gastrointestinal History: Diverticulitis about a month ago Genitourinary History: Reports: None 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: Reports: Musculoskeletal History: Reports: Arthritis, Back Pain, Chronic Other Musculoskeletal History: chronic back and shoulder pain Neurological History: Reports: None Psychiatric History: Reports: None Endocrine/Metabolic History: Reports: Obesity/BMI 30+ Hematologic History: Reports: Blood Transfusion(s) Other Hematologic History: blood transfusion following hysterectomy Immunologic History: Reports: None Oncologic (Cancer) History: 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, Other (See Below) Other Oncologic History: Endomitrial Dermatologic History: Reports: None - Infectious Disease History Infectious Disease History: Reports: Chicken Pox, Measles - Past Surgical History HEENT Surgical History: Reports: Cataract Surgery Female Surgical History: 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 Biopsy, Hysterectomy, Other (See Below) Other Female Surgeries/Procedures: Breast Lumpectomy Musculoskeletal Surgical History: Reports: Hip Replacement, Knee Replacement Other Musculoskeletal Surgeries/Procedures:: R Hip, 2 half knees Social & Family History - Family History Family Medical History: Noncontributory Cardiac: Reports: Hypertension, [place] Neurological: Reports: TIA - Tobacco Use Smoking Status *Q: Never Smoker - Caffeine Use Caffeine Use: Reports: Coffee - Recreational Drug Use Recreational Drug Use: No H&P Review of Systems - Review of Systems: Review Of Systems: ROS reveals no pertinent complaints other than HPI. Exam - Exam Exam: See Below - Vital Signs Vital Signs: Last Vital Signs Temp 36.3 C 10/02/18 07:51 Pulse 75 10/02/18 07:51 Resp 16 10/02/18 07:51 BP 134/60 10/02/18 07:51 Pulse Ox 93 L 10/02/18 04:00 Weight: 94.302 kg - Exam General: Alert, Oriented, Cooperative Lungs: Clear to Auscultation, Normal Respiratory Effort Cardiovascular: Regular Rate, Regular Rhythm GI/Abdominal Exam: Normal Bowel Sounds, Soft, No Distention, Other (Minimal LLQ tenderness. No rebound.). No: Guarding Extremities: Normal Inspection Skin: Warm, Dry Neuro Extensive - Mental Status: Alert, Oriented x3 - Patient Data Lab Results Last 24 hrs: Laboratory Results - last 24 hr 10/01/18 10/01/18 10/01/18 Range/Units 22:42 22:42 22:42 WBC 11.94 H (4.0-11.0) K/uL RBC 4.56 (4.30-5.90) M/uL Hgb 13.1 (12.0-16.0) g/dL Hct 40.9 (36.0-46.0) % MCV 89.7 (80.0-98.0) fL MCH 28.7 (27.0-32.0) pg MCHC 32.0 (31.0-37.0) g/dL RDW Std Deviation 52.3 (28.0-62.0) fl RDW Coeff of Navin 16 H (11.0-15.0) % Plt Count 345 (150-400) K/uL MPV 10.40 (7.40-12.00) fL Neut % (Auto) 55.9 (48.0-80.0) % Lymph % (Auto) 32.5 (16.0-40.0) % Garza % (Auto) 9.3 (0.0-15.0) % Eos % (Auto) 2.1 (0.0-7.0) % Baso % (Auto) 0.2 (0.0-1.5) % Neut # (Auto) 6.7 H (1.4-5.7) K/uL Lymph # (Auto) 3.9 H (0.6-2.4) K/uL Garza # (Auto) 1.1 H (0.0-0.8) K/uL Eos # (Auto) 0.3 (0.0-0.7) K/uL Baso # (Auto) 0.0 (0.0-0.1) K/uL Nucleated RBC % 0.0 /100WBC Nucleated RBCs # 0 K/uL INR 1.00 Sodium 140 (136-145) mmol/L Potassium 3.6 (3.5-5.1) mmol/L Chloride 104 (98-107) mmol/L Carbon Dioxide 26.5 (21.0-32.0) mmol/L BUN 21 H (7.0-18.0) mg/dL Creatinine 0.8 (0.6-1.0) mg/dL Est Cr Clr Drug Dosing 44.31 mL/min Estimated GFR (MDRD) > 60.0 ml/min Glucose 108 H (74-106) mg/dL Calcium 10.0 (8.5-10.1) mg/dL Total Bilirubin 0.3 (0.2-1.0) mg/dL AST 10 L (15-37) IU/L ALT 19 (14-63) IU/L Alkaline Phosphatase 123 H (46-116) U/L Total Protein 7.3 (6.4-8.2) g/dL Albumin 3.4 (3.4-5.0) g/dL Globulin 3.9 (2.6-4.0) g/dL Albumin/Globulin Ratio 0.9 (0.9-1.6) 10/02/18 10/02/18 Range/Units 05:46 05:46 WBC 13.69 H (4.0-11.0) K/uL RBC 3.84 L (4.30-5.90) M/uL Hgb 10.9 L (12.0-16.0) g/dL Hct 34.2 L (36.0-46.0) % MCV 89.1 (80.0-98.0) fL MCH 28.4 (27.0-32.0) pg MCHC 31.9 (31.0-37.0) g/dL RDW Std Deviation 51.4 (28.0-62.0) fl RDW Coeff of Navin 16 H (11.0-15.0) % Plt Count 279 (150-400) K/uL MPV 10.40 (7.40-12.00) fL Neut % (Auto) 79.2 (48.0-80.0) % Lymph % (Auto) 10.5 L (16.0-40.0) % Garza % (Auto) 9.8 (0.0-15.0) % Eos % (Auto) 0.4 (0.0-7.0) % Baso % (Auto) 0.1 (0.0-1.5) % Neut # (Auto) 10.9 H (1.4-5.7) K/uL Lymph # (Auto) 1.4 (0.6-2.4) K/uL Garza # (Auto) 1.3 H (0.0-0.8) K/uL Eos # (Auto) 0.1 (0.0-0.7) K/uL Baso # (Auto) 0.0 (0.0-0.1) K/uL Nucleated RBC % 0.0 /100WBC Nucleated RBCs # 0 K/uL INR Sodium 140 (136-145) mmol/L Potassium 3.6 (3.5-5.1) mmol/L Chloride 107 (98-107) mmol/L Carbon Dioxide 25.0 (21.0-32.0) mmol/L BUN 16 (7.0-18.0) mg/dL Creatinine 0.7 (0.6-1.0) mg/dL Est Cr Clr Drug Dosing 50.65 mL/min Estimated GFR (MDRD) > 60.0 ml/min Glucose 113 H (74-106) mg/dL Calcium 9.0 (8.5-10.1) mg/dL Total Bilirubin (0.2-1.0) mg/dL AST (15-37) IU/L ALT (14-63) IU/L Alkaline Phosphatase (46-116) U/L Total Protein (6.4-8.2) g/dL Albumin (3.4-5.0) g/dL Globulin (2.6-4.0) g/dL Albumin/Globulin Ratio (0.9-1.6) Result Diagrams: 10/02/18 05:46 10/02/18 05:46 Consult PN Assessment/Plan Procedures: Procedures AGENT NOS ASSAY W/OPTIC (02/03/18) AIRWAY INHALATION TREATMENT (01/18/18) ASSAY OF AMYLASE (02/03/18) ASSAY OF FREE THYROXINE (04/25/18) ASSAY OF IRON (01/27/16) ASSAY OF LACTIC ACID (01/18/18) ASSAY OF LIPASE (02/03/18) ASSAY OF MAGNESIUM (02/03/18) ASSAY OF PHOSPHORUS (02/03/18) ASSAY OF TROPONIN QUANT (02/03/18) ASSAY THYROID STIM HORMONE (04/25/18) BLOOD CULTURE FOR BACTERIA (02/03/18) C-REACTIVE PROTEIN (02/05/15) CHEST X-RAY 1 VIEW FRONTAL (10/12/16) CLOSTRIDIUM AG IA (02/03/18) COMP SCREEN MAMMOGRAM ADD-ON (05/16/14) COMPLETE CBC AUTOMATED (05/28/13) COMPLETE CBC W/AUTO DIFF WBC (04/25/18) COMPREHEN METABOLIC PANEL (04/25/18) CRYPTOSPORIDIUM AG IA (02/05/15) CT ABD & PELV W/CONTRAST (02/03/18) CT ABD & PELVIS W/O CONTRAST (01/18/18) DRAIN/INJ JOINT/BURSA W/O US (06/23/15) DXA BONE DENSITY AXIAL (10/15/14) ELECTROCARDIOGRAM TRACING (02/03/18) EMERGENCY DEPT VISIT (02/03/18) EMERGENCY DEPT VISIT (09/01/17) EMERGENCY DEPT VISIT (10/12/16) EMERGENCY DEPT VISIT (03/01/15) EMERGENCY DEPT VISIT (02/05/15) EMERGENCY DEPT VISIT (12/08/13) GIARDIA AG IA (02/05/15) GLYCOSYLATED HEMOGLOBIN TEST (04/25/18) HELICOBACTER PYLORI ANTIBODY (05/28/13) HYDRATE IV INFUSION ADD-ON (02/03/18) HYDRATION IV INFUSION INIT (09/30/13) INJ TRIGGER POINT 1/2 MUSCL (06/23/15) INSERT TEMP BLADDER CATH (01/18/18) LACTOFERRIN FECAL (QUAL) (01/18/16) LIPID PANEL (04/25/18) METABOLIC PANEL TOTAL CA (01/29/18) MICROBE SUSCEPTIBLE SELAM (01/18/18) OCCULT BLD FECES 1-3 TESTS (02/05/15) OCCULT BLOOD FECES (03/18/15) OFFICE/OUTPATIENT VISIT EST (10/21/16) OFFICE/OUTPATIENT VISIT EST (03/18/15) OFFICE/OUTPATIENT VISIT EST (11/05/14) OFFICE/OUTPATIENT VISIT EST (06/16/14) OFFICE/OUTPATIENT VISIT EST (10/10/13) OFFICE/OUTPATIENT VISIT EST (06/12/13) OFFICE/OUTPATIENT VISIT EST (05/28/13) PROTHROMBIN TIME (02/03/18) REMOTE 30 DAY ECG REV/REPORT (10/31/16) ROUTINE VENIPUNCTURE (04/25/18) STOOL CULTR AEROBIC BACT EA (02/03/18) THER/DIAG CONCURRENT INF (02/03/18) THER/PROPH/DIAG INJ IV PUSH (03/29/17) THER/PROPH/DIAG INJ SC/IM (02/03/18) THER/PROPH/DIAG IV INF INIT (02/03/18) TTE W/DOPPLER COMPLETE (11/30/17) TX/PRO/DX INJ NEW DRUG ADDON (02/03/18) TX/PRO/DX INJ SAME DRUG QUICKBOOKS BOOKKEEPER (02/03/18) TX/PROPH/DG ADDL SEQ IV INF (01/18/18) URINALYSIS AUTO W/O SCOPE (02/03/18) URINALYSIS AUTO W/SCOPE (01/29/18) URINE BACTERIA CULTURE (01/18/18) URINE CULTURE/COLONY COUNT (01/29/18) X-RAY EXAM ABDOMEN 2 VIEWS (02/03/18) X-RAY EXAM CHEST 2 VIEWS (01/18/18) Problem List Initiated/Reviewed/Updated: Yes Plan: 73 y/o female with history of diverticulitis presenting with rectal bleeding, however, with no significant abdominal pain. CT imaging showed inflammation in the rectosigmoid junction consistent with acute diverticulitis. I suspected that her rectal bleeding is due to her diverticulitis. Hg went down somewhat but patient has remained hemodynamically stable. I suspected that her Hg is due to some dilutional effect. White count went up consistent with acute diverticulitis. Can advance patient to clear liquids and advance as tolerated. Agree with serial H/H monitoring and continue with Zosyn for now. Will need to follow-up with Dr. Bassett as outpatient for colonoscopy. <SerjioInge M - Last Filed: 10/02/18 17:05> H&P History of Present Illness - General Admit Problem/Dx: Admission Diagnosis/Problem Admission Diagnosis/Problem Bright red blood per rectum Exam - Vital Signs Vital Signs: Last Vital Signs Temp 36.6 C 10/02/18 12:00 Pulse 66 10/02/18 12:00 Resp 16 10/02/18 12:00 BP 179/70 H 10/02/18 12:00 Pulse Ox 96 10/02/18 12:00 - Patient Data Lab Results Last 24 hrs: Laboratory Results - last 24 hr 10/01/18 10/01/18 10/01/18 Range/Units 22:42 22:42 22:42 WBC 11.94 H (4.0-11.0) K/uL RBC 4.56 (4.30-5.90) M/uL Hgb 13.1 (12.0-16.0) g/dL Hct 40.9 (36.0-46.0) % MCV 89.7 (80.0-98.0) fL MCH 28.7 (27.0-32.0) pg MCHC 32.0 (31.0-37.0) g/dL RDW Std Deviation 52.3 (28.0-62.0) fl RDW Coeff of Navin 16 H (11.0-15.0) % Plt Count 345 (150-400) K/uL MPV 10.40 (7.40-12.00) fL Neut % (Auto) 55.9 (48.0-80.0) % Lymph % (Auto) 32.5 (16.0-40.0) % Garza % (Auto) 9.3 (0.0-15.0) % Eos % (Auto) 2.1 (0.0-7.0) % Baso % (Auto) 0.2 (0.0-1.5) % Neut # (Auto) 6.7 H (1.4-5.7) K/uL Lymph # (Auto) 3.9 H (0.6-2.4) K/uL Garza # (Auto) 1.1 H (0.0-0.8) K/uL Eos # (Auto) 0.3 (0.0-0.7) K/uL Baso # (Auto) 0.0 (0.0-0.1) K/uL Nucleated RBC % 0.0 /100WBC Nucleated RBCs # 0 K/uL INR 1.00 Sodium 140 (136-145) mmol/L Potassium 3.6 (3.5-5.1) mmol/L Chloride 104 (98-107) mmol/L Carbon Dioxide 26.5 (21.0-32.0) mmol/L BUN 21 H (7.0-18.0) mg/dL Creatinine 0.8 (0.6-1.0) mg/dL Est Cr Clr Drug Dosing 44.31 mL/min Estimated GFR (MDRD) > 60.0 ml/min Glucose 108 H (74-106) mg/dL Calcium 10.0 (8.5-10.1) mg/dL Total Bilirubin 0.3 (0.2-1.0) mg/dL AST 10 L (15-37) IU/L ALT 19 (14-63) IU/L Alkaline Phosphatase 123 H (46-116) U/L Total Protein 7.3 (6.4-8.2) g/dL Albumin 3.4 (3.4-5.0) g/dL Globulin 3.9 (2.6-4.0) g/dL Albumin/Globulin Ratio 0.9 (0.9-1.6) 10/02/18 10/02/18 10/02/18 Range/Units 05:46 05:46 13:05 WBC 13.69 H (4.0-11.0) K/uL RBC 3.84 L (4.30-5.90) M/uL Hgb 10.9 L 10.5 L (12.0-16.0) g/dL Hct 34.2 L (36.0-46.0) % MCV 89.1 (80.0-98.0) fL MCH 28.4 (27.0-32.0) pg MCHC 31.9 (31.0-37.0) g/dL RDW Std Deviation 51.4 (28.0-62.0) fl RDW Coeff of Navin 16 H (11.0-15.0) % Plt Count 279 (150-400) K/uL MPV 10.40 (7.40-12.00) fL Neut % (Auto) 79.2 (48.0-80.0) % Lymph % (Auto) 10.5 L (16.0-40.0) % Garza % (Auto) 9.8 (0.0-15.0) % Eos % (Auto) 0.4 (0.0-7.0) % Baso % (Auto) 0.1 (0.0-1.5) % Neut # (Auto) 10.9 H (1.4-5.7) K/uL Lymph # (Auto) 1.4 (0.6-2.4) K/uL Garza # (Auto) 1.3 H (0.0-0.8) K/uL Eos # (Auto) 0.1 (0.0-0.7) K/uL Baso # (Auto) 0.0 (0.0-0.1) K/uL Nucleated RBC % 0.0 /100WBC Nucleated RBCs # 0 K/uL INR Sodium 140 (136-145) mmol/L Potassium 3.6 (3.5-5.1) mmol/L Chloride 107 (98-107) mmol/L Carbon Dioxide 25.0 (21.0-32.0) mmol/L BUN 16 (7.0-18.0) mg/dL Creatinine 0.7 (0.6-1.0) mg/dL Est Cr Clr Drug Dosing 50.65 mL/min Estimated GFR (MDRD) > 60.0 ml/min Glucose 113 H (74-106) mg/dL Calcium 9.0 (8.5-10.1) mg/dL Total Bilirubin (0.2-1.0) mg/dL AST (15-37) IU/L ALT (14-63) IU/L Alkaline Phosphatase (46-116) U/L Total Protein (6.4-8.2) g/dL Albumin (3.4-5.0) g/dL Globulin (2.6-4.0) g/dL Albumin/Globulin Ratio (0.9-1.6) Result Diagrams: 10/02/18 13:05 10/02/18 05:46 Consult PN Assessment/Plan Procedures: Procedures AGENT NOS ASSAY W/OPTIC (02/03/18) AIRWAY INHALATION TREATMENT (01/18/18) ASSAY OF AMYLASE (02/03/18) ASSAY OF FREE THYROXINE (04/25/18) ASSAY OF IRON (01/27/16) ASSAY OF LACTIC ACID (01/18/18) ASSAY OF LIPASE (02/03/18) ASSAY OF MAGNESIUM (02/03/18) ASSAY OF PHOSPHORUS (02/03/18) ASSAY OF TROPONIN QUANT (02/03/18) ASSAY THYROID STIM HORMONE (04/25/18) BLOOD CULTURE FOR BACTERIA (02/03/18) C-REACTIVE PROTEIN (02/05/15) CHEST X-RAY 1 VIEW FRONTAL (10/12/16) CLOSTRIDIUM AG IA (02/03/18) COMP SCREEN MAMMOGRAM ADD-ON (05/16/14) COMPLETE CBC AUTOMATED (05/28/13) COMPLETE CBC W/AUTO DIFF WBC (04/25/18) COMPREHEN METABOLIC PANEL (04/25/18) CRYPTOSPORIDIUM AG IA (02/05/15) CT ABD & PELV W/CONTRAST (02/03/18) CT ABD & PELVIS W/O CONTRAST (01/18/18) DRAIN/INJ JOINT/BURSA W/O US (06/23/15) DXA BONE DENSITY AXIAL (10/15/14) ELECTROCARDIOGRAM TRACING (02/03/18) EMERGENCY DEPT VISIT (02/03/18) EMERGENCY DEPT VISIT (09/01/17) EMERGENCY DEPT VISIT (10/12/16) EMERGENCY DEPT VISIT (03/01/15) EMERGENCY DEPT VISIT (02/05/15) EMERGENCY DEPT VISIT (12/08/13) GIARDIA AG IA (02/05/15) GLYCOSYLATED HEMOGLOBIN TEST (04/25/18) HELICOBACTER PYLORI ANTIBODY (05/28/13) HYDRATE IV INFUSION ADD-ON (02/03/18) HYDRATION IV INFUSION INIT (09/30/13) INJ TRIGGER POINT 1/2 MUSCL (06/23/15) INSERT TEMP BLADDER CATH (01/18/18) LACTOFERRIN FECAL (QUAL) (01/18/16) LIPID PANEL (04/25/18) METABOLIC PANEL TOTAL CA (01/29/18) MICROBE SUSCEPTIBLE SELAM (01/18/18) OCCULT BLD FECES 1-3 TESTS (02/05/15) OCCULT BLOOD FECES (03/18/15) OFFICE/OUTPATIENT VISIT EST (10/21/16) OFFICE/OUTPATIENT VISIT EST (03/18/15) OFFICE/OUTPATIENT VISIT EST (11/05/14) OFFICE/OUTPATIENT VISIT EST (06/16/14) OFFICE/OUTPATIENT VISIT EST (10/10/13) OFFICE/OUTPATIENT VISIT EST (06/12/13) OFFICE/OUTPATIENT VISIT EST (05/28/13) PROTHROMBIN TIME (02/03/18) REMOTE 30 DAY ECG REV/REPORT (10/31/16) ROUTINE VENIPUNCTURE (04/25/18) STOOL CULTR AEROBIC BACT EA (02/03/18) THER/DIAG CONCURRENT INF (02/03/18) THER/PROPH/DIAG INJ IV PUSH (03/29/17) THER/PROPH/DIAG INJ SC/IM (02/03/18) THER/PROPH/DIAG IV INF INIT (02/03/18) TTE W/DOPPLER COMPLETE (11/30/17) TX/PRO/DX INJ NEW DRUG ADDON (02/03/18) TX/PRO/DX INJ SAME DRUG QUICKBOOKS BOOKKEEPER (02/03/18) TX/PROPH/DG ADDL SEQ IV INF (01/18/18) URINALYSIS AUTO W/O SCOPE (02/03/18) URINALYSIS AUTO W/SCOPE (01/29/18) URINE BACTERIA CULTURE (01/18/18) URINE CULTURE/COLONY COUNT (01/29/18) X-RAY EXAM ABDOMEN 2 VIEWS (02/03/18) X-RAY EXAM CHEST 2 VIEWS (01/18/18) (1) Bright red blood per rectum SNOMED Code(s): 59258816 Code(s): K62.5 - HEMORRHAGE OF ANUS AND RECTUM Current Visit: Yes (2) Dehydration SNOMED Code(s): 01508892 Code(s): E86.0 - DEHYDRATION Current Visit: No (3) Diverticulitis SNOMED Code(s): 195904758 Code(s): K57.92 - DVTRCLI OF INTEST, PART UNSP, W/O PERF OR ABSCESS W/O BLEED Current Visit: No Onset Date: 09/30/13 Problem List Initiated/Reviewed/Updated: Yes Plan: Patient examined by myself and the resident. Agree with his note as detailed above. Patient had formed BM this afternoon. Vitals stable. Abdomen soft. Clears and zosyn for today. Ok to switch to orals when WBC normal and if hemoglobin remains stable. Most likely in am.
[2018-10-03] MEDS: Sodium Chloride 0.9% 1,000 ML IV SCH (04:00)
[2018-10-03] MEDS: Piperacillin/Tazobactam 3.375 GM in Sodium Chloride 0.9% 100 ML IV SCH ×2 (04:15→09:16)
[2018-10-03 06:48] LABS: CHLORIDE,CL 110 mmol/L (98-107); SODIUM,NA 143 mmol/L (136-145)
[2018-10-03 07:23] VITALS: BP 134/77
--- NOTE | 2018-10-03 08:18 | PCM.DCSUM1 ---
<Lamar Jackson - Last Filed: 10/03/18 10:09> Discharge Summary - Hospital Course Free Text/Narrative:: Discharge summary Admission date October 02, 2018 Discharge date September 25, 2018 Admission diagnoses: Acute diverticulitis with flank blood per rectum Past medical history:, Glaucoma, hypercholesterolemia, irritable bowel syndrome Discharge diagnoses: Acute diverticulitis with carlos blood per rectum; improving. Leukocytosis: Resolved Consultations: Dr. Inge Bassett/general surgery Procedures: None Hospital course: Patient is a 73-year-old female with past medical history of glaucoma, hypercholesterolemia and irritable bowel syndrome presenting yesterday with carlos bright red blood per rectum without any additional pain, nausea, vomiting. States having multiple episodes of diverticulitis and has resolving with antibiotics and bowel rest. Arrival patient was made nothing by mouth, started on Zosyn, and given IV fluids. General surgery was consulted. Following day patient labs had normalized e.g leukocytosis had resolved and patient had a formed bowel movement without carlos blood. Patient provided with additional 13 days of Augmentin and advised to follow-up with Dr. Bassett of general surgery for colonoscopy. Discharge condition: Stable Disposition: Home Discharge medications: Augmentin 13 days Discharge instructions: Patient advised to follow-up with PCP within one week Patient was a follow-up with general surgery/gastroenterology for outpatient colonoscopy Advised to notify provider if symptoms of fever, chills, body aches, dizziness, chest pain, shortness of breath, uncontrollable abdominal pain occurs Follow-up: PCP 1 week Gen. surgery for outpatient colonoscopy - Discharge Data Discharge Date: 10/03/18 Discharge Disposition: Home, Self-Care 01 Condition: Stable - Patient Instructions Diet: Heart Healthy Diet Showering/Bathing: May Shower Notify Provider of: Fever, Increased Pain, Swelling and Redness, Drainage, Nausea and/or Vomiting Other/Special Instructions: contact providor of fever, chills, bodyaches, chest pain or uncontrollable pain - Discharge Plan *PRESCRIPTION DRUG MONITORING PROGRAM REVIEWED*: No *COPY OF PRESCRIPTION DRUG MONITORING REPORT IN PATIENT ALEJA: No Prescriptions/Med Rec: Amoxicillin/Clavulanate K [Augmentin 875-125 MG] 1 tab PO BID 13 Days #26 tablet Home Medications: Home Meds Atenolol 25 mg PO BEDTIME 03/29/17 [History] Furosemide [Lasix] 20 mg PO DAILY 03/29/17 [History] Hydrocodone/Acetaminophen [Hydrocodon-Acetaminophen 5-300] 1 tab PO ASDIRECTED PRN 03/29/17 [History] Losartan [Cozaar] 100 mg PO DAILY 03/29/17 [History] Timolol [Betimol 0.5% Ophth Soln] 1 drop EYEBOTH BID 03/29/17 [History] Travoprost [Travatan Z 0.004% Ophth Soln] 1 drop EYEBOTH BEDTIME 03/29/17 [ History] Cholecalciferol (Vitamin D3) [Vitamin D3] 1,000 units PO DAILY 09/01/17 [History ] Fish Oil/[place]-3 Fatty Acids [Fish Oil 1,000 MG] 1 gm PO BID 09/01/17 [History] Lutein 40 mg PO DAILY 09/01/17 [History] Omeprazole 20 mg PO DAILY 09/01/17 [History] Ubidecarenone [Coq10] 50 mg PO BEDTIME 09/01/17 [History] Zinc 50 mg PO DAILY 09/01/17 [History] atorvaSTATin [Lipitor] 10 mg PO BEDTIME 09/01/17 [History] diphenhydrAMINE HCl [Benadryl] 50 mg PO BEDTIME 10/02/18 [History] Amoxicillin/Clavulanate K [Augmentin 875-125 MG] 1 tab PO BID 13 Days #26 tablet 10/03/18 [Rx] Patient Handouts: Diverticulitis, Wibh-of-Bvkw, Amoxicillin capsules or tablets Referrals: [facility] [Ordering Only Provider] - Inge Bassett MD [Physician] - 10/17/18 9:30 am (Consult for Colonoscopy) Steven Mitchell MD [Primary Care Provider] - 10/12/18 9:30 am - Discharge Summary/Plan Comment DC Time >30 min.: No - Patient Data Vitals - Most Recent: Last Vital Signs Temp 97.1 F 10/03/18 07:22 Pulse 70 10/03/18 07:22 Resp 18 10/03/18 07:22 BP 134/77 10/03/18 07:22 Pulse Ox 96 10/03/18 07:22 Weight - Most Recent: 94.302 kg I&O - Last 24 hours: Intake & Output 10/02/18 10/03/18 10/03/18 22:59 06:59 14:59 Intake Total 7501 1084 Output Total 1200 2400 Balance 1217 -1316 Lab Results - Last 24 hrs: Laboratory Results - last 24 hr 10/02/18 10/03/18 10/03/18 Range/Units 13:05 05:45 05:50 WBC 6.86 (4.0-11.0) K/uL RBC 3.84 L (4.30-5.90) M/uL Hgb 10.5 L 10.9 L (12.0-16.0) g/dL Hct 34.2 L (36.0-46.0) % MCV 89.1 (80.0-98.0) fL MCH 28.4 (27.0-32.0) pg MCHC 31.9 (31.0-37.0) g/dL RDW Std Deviation 52.1 (28.0-62.0) fl RDW Coeff of Navin 16 H (11.0-15.0) % Plt Count 272 (150-400) K/uL MPV 10.50 (7.40-12.00) fL Neut % (Auto) 57.2 (48.0-80.0) % Lymph % (Auto) 28.6 (16.0-40.0) % Candler % (Auto) 12.1 (0.0-15.0) % Eos % (Auto) 2.0 (0.0-7.0) % Baso % (Auto) 0.1 (0.0-1.5) % Neut # (Auto) 3.9 (1.4-5.7) K/uL Lymph # (Auto) 2.0 (0.6-2.4) K/uL Candler # (Auto) 0.8 (0.0-0.8) K/uL Eos # (Auto) 0.1 (0.0-0.7) K/uL Baso # (Auto) 0.0 (0.0-0.1) K/uL Nucleated RBC % 0.0 /100WBC Nucleated RBCs # 0 K/uL Sodium 143 (136-145) mmol/L Potassium 3.4 L (3.5-5.1) mmol/L Chloride 110 H (98-107) mmol/L Carbon Dioxide 23.9 (21.0-32.0) mmol/L BUN 6 L (7.0-18.0) mg/dL Creatinine 0.7 (0.6-1.0) mg/dL Est Cr Clr Drug Dosing 50.65 mL/min Estimated GFR (MDRD) > 60.0 ml/min Glucose 103 (74-106) mg/dL Calcium 9.2 (8.5-10.1) mg/dL Total Bilirubin 0.5 (0.2-1.0) mg/dL AST 15 (15-37) IU/L ALT 20 (14-63) IU/L Alkaline Phosphatase 96 (46-116) U/L Total Protein 5.8 L (6.4-8.2) g/dL Albumin 2.7 L (3.4-5.0) g/dL Globulin 3.1 (2.6-4.0) g/dL Albumin/Globulin Ratio 0.9 (0.9-1.6) Med Orders - Current: Current Medications Sodium Chloride (Normal Saline) 1,000 mls @ 125 mls/hr IV ASDIRECTED [facility] Last Admin: 10/03/18 04:00 Dose: 125 mls/hr Piperacillin Sod/Tazobactam (Sod 3.375 gm/ Sodium Chloride) 100 mls @ 200 mls/ hr IV Q6H [facility] Last Admin: 10/03/18 04:15 Dose: 200 mls/hr Sodium Chloride (Saline Flush) 10 ml FLUSH ASDIRECTED PRN PRN Reason: Keep Vein Open Last Admin: 10/01/18 22:41 Dose: 10 ml Sodium Chloride (Saline Flush) 2.5 ml FLUSH ASDIRECTED PRN PRN Reason: Keep Vein Open Last Admin: 10/01/18 22:41 Dose: 2.5 ml Discontinued Medications Cefoxitin Sodium 2 gm/ Premix 50 mls @ 100 mls/hr IV ONETIME ONE Stop: 10/01/18 23:45 Last Admin: 10/01/18 23:56 Dose: 100 mls/hr Sodium Chloride (Normal Saline) 1,000 mls @ 999 mls/hr IV STAT ONE Stop: 10/02/18 00:28 Last Admin: 10/01/18 23:56 Dose: 999 mls/hr Metronidazole 500 mg/ Premix 100 mls @ 100 mls/hr IV Q6H [facility] Last Admin: 10/02/18 06:47 Dose: 100 mls/hr <Josh Barry J - Last Filed: 10/04/18 10:51> - Patient Data Vitals - Most Recent: Last Vital Signs Temp 36.2 C 10/03/18 07:22 Pulse 70 10/03/18 07:22 Resp 18 10/03/18 07:22 BP 134/77 10/03/18 07:22 Pulse Ox 96 10/03/18 07:22 Med Orders - Current: Current Medications Discontinued Medications Cefoxitin Sodium 2 gm/ Premix 50 mls @ 100 mls/hr IV ONETIME ONE Stop: 10/01/18 23:45 Last Admin: 10/01/18 23:56 Dose: 100 mls/hr Sodium Chloride (Normal Saline) 1,000 mls @ 999 mls/hr IV STAT ONE Stop: 10/02/18 00:28 Last Admin: 10/01/18 23:56 Dose: 999 mls/hr Metronidazole 500 mg/ Premix 100 mls @ 100 mls/hr IV Q6H [facility] Last Admin: 10/02/18 06:47 Dose: 100 mls/hr Sodium Chloride (Normal Saline) 1,000 mls @ 125 mls/hr IV ASDIRECTED [facility] Last Admin: 10/03/18 04:00 Dose: 125 mls/hr Piperacillin Sod/Tazobactam (Sod 3.375 gm/ Sodium Chloride) 100 mls @ 200 mls/ hr IV Q6H [facility] Last Admin: 10/03/18 09:16 Dose: 200 mls/hr Potassium Chloride (Klor-Con M20) 20 meq PO ONETIME ONE Stop: 10/03/18 09:42 Last Admin: 10/03/18 09:59 Dose: 20 meq Sodium Chloride (Saline Flush) 10 ml FLUSH ASDIRECTED PRN PRN Reason: Keep Vein Open Last Admin: 10/01/18 22:41 Dose: 10 ml Sodium Chloride (Saline Flush) 2.5 ml FLUSH ASDIRECTED PRN PRN Reason: Keep Vein Open Last Admin: 10/01/18 22:41 Dose: 2.5 ml - Free Text/Narrative Note: I have evaluated the patient. I have discussed findings and treatment plan with resident. I agree with the assessment and plan outlined in the following note.
[2018-10-03] MEDS ORDERED: Potassium Chloride 20 MEQ Tab.ER PO ONE (09:41)
== END 2018-10-03 11:25 | disposition home or self-care (01) | DRG 378 ==
LOC: MW.ED 22:21 → MW.MS 23:25 → OBSVTOIN 10-02 10:30 → MW.MS 10-02 10:31
PROVIDERS: ADMIT Internal Medicine; ATTEND Internal Medicine
DX: K57.33 Diverticulitis of large intestine without perforation or abscess with bleeding (principal); K92.1 Melena; Z68.41 Body mass index [BMI] 40.0-44.9, adult; H35.30 Unspecified macular degeneration; H40.9 Unspecified glaucoma; E78.00 Pure hypercholesterolemia, unspecified; I10 Essential (primary) hypertension; G89.29 Other chronic pain; M19.90 Unspecified osteoarthritis, unspecified site; M54.9 Dorsalgia, unspecified; Z68.30 Body mass index [BMI] 30.0-30.9, adult; E66.9 Obesity, unspecified; Z96.641 Presence of right artificial hip joint; Z96.653 Presence of artificial knee joint, bilateral; D64.9 Anemia, unspecified; Z88.8 Allergy status to other drugs, medicaments and biological substances; E86.0 Dehydration; Z85.3 Personal history of malignant neoplasm of breast; Z88.1 Allergy status to other antibiotic agents; Z88.5 Allergy status to narcotic agent; Z79.899 Other long term (current) drug therapy; Z85.42 Personal history of malignant neoplasm of other parts of uterus
CPT/HCPCS: 36415 ×2; 74177; 80048; 80053; 85025 ×2; 85610; 96374; 99285; J0694; J2543; J3490 ×2; J7030; J7040 ×2; 85018; 96361; 96375; 96376; A9270-GY; G0378

== ENCOUNTER 2018-12-20 07:04 | Day surgery (SDC) | payer MEDICARE, OTHER ==
[~2018-12-20 07:04] MED LIST changes: -Albuterol 0.083% 2.5 MG/3 ML Neb Soln NEB ONE; -Albuterol 0.083% 2.5 MG/3 ML Neb Soln ONE; +Lactated Ringers 1,000 ML IV SCH; +Sodium Chloride 0.9% 10 ML SDV IV PRN; +Sodium Chloride 0.9% 10 ML Syringe FLUSH PRN; +Sodium Chloride 0.9% 2.5 ML Syringe FLUSH PRN
[2018-12-20] MEDS ORDERED: Propofol 200 MG/20 ML SDV ONE (07:39)
[2018-12-20] MEDS ORDERED: Ketamine 500 mg/10 ML MDV ONE (07:40)
[2018-12-20] MEDS ORDERED: Lidocaine 2% 5 ML SDV ONE (07:40)
--- NOTE | 2018-12-20 08:09 | PCM.PREANE ---
Preanesthetic Assessment - Anesthesia/Transfusion/Family Hx Anesthesia History: Prior Anesthesia Reaction Other Type of Anesthesia Reaction Comment: "my mother and I both have problems with N/V post anesthesia" Family History of Anesthesia Reaction: No Transfusion History: Prior Transfusion Without Reaction - Review of Systems General: No Symptoms Pulmonary: No Symptoms Cardiovascular: No Symptoms Neurological: No Symptoms Other: Reports: None - Physical Assessment NPO Status Date: 12/19/18 NPO Status Time: 22:00 Vital Signs: Last Vital Signs Temp 95.9 F 12/20/18 07:12 Pulse 61 12/20/18 07:12 Resp 18 12/20/18 07:12 BP 178/84 H 12/20/18 07:12 Pulse Ox 94 L 12/20/18 07:12 Height: 5 ft Weight: 90.718 kg ASA Class: 3 Mental Status: Alert & Oriented x3 Airway Class: Mallampati = 2 Dentition: Reports: Normal Dentition ROM/Head Extension: Full Lungs: Clear to Auscultation, Normal Respiratory Effort Cardiovascular: Regular Rate, Regular Rhythm - Allergies Allergies/Adverse Reactions: Allergies Allergy/AdvReac Type Severity Reaction Status Date / Time ciprofloxacin HCl Allergy Nausea Verified 12/14/18 11:17 [From Cipro] NSAIDS (Non-Steroidal Allergy Cannot Verified 12/14/18 11:17 Anti-Inflamma Remember - Blood Blood Available: No - Anesthesia Plan Pre-Op Medication Ordered: None - Acknowledgements Anesthesia Type Planned: General Anesthesia Pt an Appropriate Candidate for the Planned Anesthesia: Yes Alternatives and Risks of Anesthesia Discussed w Pt/Guardian: Yes Pt/Guardian Understands and Agrees with Anesthesia Plan: Yes Additional Comments: hari prob list: clinical suspicion for OSCAR, chronic LBP, glaucoma, htn, IBS, PACs and PVCs, recurrant episodes of diverticulosis, and hx of lower GI bleed PLAN: TI([facility]- avoid benzos and opioids PreAnesthesia Questionnaire - Past Health History Medical/Surgical History: Denies Medical/Surgical History HEENT History: Reports: Cataract, Glaucoma, Macular Degeneration, Other (See Below) Other HEENT History: uses reading glasses, gets injections into left eye every 6 weeks Cardiovascular History: Reports: High Cholesterol, Hypertension Other Cardiovascular History: feels like she has palpitations- nothing ever found with testing Respiratory History: Reports: None Gastrointestinal History: Reports: Diverticulosis, GERD, Other (See Below) Other Gastrointestinal History: recent diverticulitis Genitourinary History: Reports: Renal Calculus Other Genitourinary History: had stent placed and removed, was told she had Stage 3 kidney disease many years ago due to NSAID use DISABILITY BENEFITS SPECIALIST History: Reports: Musculoskeletal History: Reports: Back Pain, Chronic, Osteoarthritis Other Musculoskeletal History: chronic shoulder pain Neurological History: Reports: None Psychiatric History: Reports: None Endocrine/Metabolic History: Reports: Obesity/BMI 30+ Hematologic History: Reports: Blood Transfusion(s) Other Hematologic History: blood transfusion following hysterectomy Immunologic History: Reports: None Oncologic (Cancer) History: 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, Uterine Other Oncologic History: Endomitrial Dermatologic History: Reports: None - Infectious Disease History Infectious Disease History: Reports: Chicken Pox, Measles - Past Surgical History Head Surgeries/Procedures: Reports: None HEENT Surgical History: Reports: Cataract Surgery GI Surgical History: Reports: Cholecystectomy, Colonoscopy Female Surgical History: 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 Biopsy, Breast Reduction, Hysterectomy Other Female Surgeries/Procedures: Breast Lumpectomy Musculoskeletal Surgical History: Reports: Hip Replacement, Knee Replacement Other Musculoskeletal Surgeries/Procedures:: bilateral partial knee replacement , right RIGOBERTO Oncologic Surgical History: Reports: Lumpectomy - SUBSTANCE USE Smoking Status *Q: Former Smoker Tobacco Use Within Last Twelve Months: No Recreational Drug Use History: No - HOME MEDS Home Medications: Home Meds Atenolol 25 mg PO BEDTIME 03/29/17 [History] Furosemide [Lasix] 20 mg PO DAILY 03/29/17 [History] Losartan [Cozaar] 100 mg PO QAM 03/29/17 [History] Travoprost [Travatan Z 0.004% Oph Sol] 1 drop EYEBOTH BEDTIME 03/29/17 [ History] Cholecalciferol (Vitamin D3) [Vitamin D3] 1,000 units PO DAILY 09/01/17 [History ] Fish Oil/[place]-3 Fatty Acids [Fish Oil 1,000 MG] 1 gm PO BID 09/01/17 [History] Lutein 40 mg PO DAILY 09/01/17 [History] Omeprazole 20 mg PO QAM 09/01/17 [History] Zinc 50 mg PO DAILY 09/01/17 [History] atorvaSTATin [Lipitor] 10 mg PO BEDTIME 09/01/17 [History] Diclofenac Sodium 2 gm TOP QID PRN 12/14/18 [History] Dorzolamide HCl/Timolol Maleat [Dorzolamide-Timolol Eye Drops] 1 drop EYEBOTH BID 12/14/18 [History] Hydrocodone/Acetaminophen [Hydrocodon-Acetaminophen 5-325] 1 tab PO DAILY PRN [History] Ketamine Powder Compounded Cre 1 dose TOP ASDIRECTED PRN 12/14/18 [History] L.acidoph,Paracasei, B.lactis [Probiotic] 1 cap PO DAILY 12/14/18 [History] Ubidecarenone [Co Q-10] 120 mg PO DAILY 12/14/18 [History] - CURRENT (IN HOUSE) MEDS Current Meds: Current Medications Lactated Ringer's (Ringers, Lactated) 1,000 mls @ 125 mls/hr IV ASDIRECTED [facility] Last Admin: 12/20/18 07:30 Dose: 125 mls/hr Sodium Chloride (Saline Flush) 10 ml FLUSH ASDIRECTED PRN PRN Reason: Keep Vein Open Sodium Chloride (Saline Flush) 2.5 ml FLUSH ASDIRECTED PRN PRN Reason: Keep Vein Open Sodium Chloride (Saline Flush) 10 ml FLUSH ASDIRECTED PRN PRN Reason: Keep Vein Open Sodium Chloride (Saline Flush) 2.5 ml FLUSH ASDIRECTED PRN PRN Reason: Keep Vein Open Sodium Chloride (Normal Saline) 10 ml IV ASDIRECTED PRN PRN Reason: IV Use Discontinued Medications Ketamine HCl (Ketalar) Confirm Administered Dose 500 mg .ROUTE .STK-MED ONE Stop: 12/20/18 07:41 Lidocaine (Xylocaine-Mpf 2%) Confirm Administered Dose 5 ml .ROUTE .STK-MED ONE Stop: 12/20/18 07:41 Propofol (Diprivan 20 Ml) Confirm Administered Dose 400 mg .ROUTE .STK-MED ONE Stop: 12/20/18 07:40
[2018-12-20 10:03] VITALS: BP 173/74; PULSE 58
--- NOTE | 2018-12-20 11:16 | PCM.POSTAN ---
POST ANESTHESIA ASSESSMENT - MENTAL STATUS Mental Status: Alert, Oriented - VITAL SIGNS Vital Signs: Last Vital Signs Temp 96.8 F 12/20/18 09:51 Pulse 58 L 12/20/18 09:51 Resp 18 12/20/18 09:51 BP 173/74 H 12/20/18 09:51 Pulse Ox 96 12/20/18 09:51 - RESPIRATORY Respiratory Status: Respiratory Rate WNL, Airway Patent, O2 Saturation Stable - CARDIOVASCULAR CV Status: Pulse Rate WNL, Blood Pressure Stable - GASTROINTESTINAL GI Status: No Symptoms - POST OP HYDRATION Hydration Status: Adequate & Stable
--- NOTE | 2018-12-20 11:16 | PCM48HPAN ---
Post Anesthesia Note - EVALUATION WITHIN 48HRS OF ANESTHETIC Vital Signs in Normal Range: Yes Patient Participated in Evaluation: Yes Respiratory Function Stable: Yes Airway Patent: Yes Cardiovascular Function Stable: Yes Hydration Status Stable: Yes Pain Control Satisfactory: Yes Nausea and Vomiting Control Satisfactory: Yes Mental Status Recovered: Yes Vital Signs: Last Vital Signs Temp 96.8 F 12/20/18 09:51 Pulse 58 L 12/20/18 09:51 Resp 18 12/20/18 09:51 BP 173/74 H 12/20/18 09:51 Pulse Ox 96 12/20/18 09:51
--- NOTE | 2018-12-20 12:24 | PCM.OPNOTE ---
- General Post-Op/Procedure Note Date of Surgery/Procedure: 12/20/18 Operative Procedure(s): Sigmoidoscopy with biopsy Findings: Attempted to perform a colonoscopy but due to diverticulosis and a very tortuous colon I was unable to get the scope past 40cm from the anus Pre Op Diagnosis: diverticulitis Post-Op Diagnosis: same Anesthesia Technique: MAC Primary Surgeon: Inge Bassett Condition: Good Free Text/Narrative:: Intake & Output 12/19/18 12/20/18 12/20/18 22:59 06:59 14:59 Intake Total 500 Balance 500
--- NOTE | 2018-12-20 13:22 | OR ---
SURGEON: INGE BASSETT MD DATE OF PROCEDURE: 12/20/2018 PREOPERATIVE DIAGNOSIS: Diverticulitis. POSTOPERATIVE DIAGNOSES: 1. Diverticulosis. 2. Lipoma of the colon. PROCEDURE PERFORMED: Diagnostic sigmoidoscopy with biopsy, and complete colonoscopy. PRIMARY SURGEON: Inge Bassett MD. ANESTHESIA: MAC. INSTRUMENT USED: Olympus colonoscope. EXTENT OF EXAM: 40 cm from the anus. PREPARATION: Good. LIMITATIONS: Tortuosity of colon. INDICATIONS: The patient is a 73-year-old female who was recently diagnosed with diverticulitis. She has a remote history a previous episode of diverticulitis. The decision was made to proceed with a diagnostic colonoscopy after the inflammation had settled down. I explained the procedure; expected perioperative course; and risks including bleeding, infection, or damage to surrounding structures. She verbalized understanding and wishes to proceed. PROCEDURE IN DETAIL: The patient was brought into the endoscopy suite and placed in a left lateral decubitus position. A time-out was completed verifying the patient's name, age, date of , allergies, and procedure to be performed. Monitored anesthesia care was induced and continuous oxygen was provided via nasal cannula throughout the procedure. After adequate sedation was achieved, a digital rectal exam was performed. This exam was within normal limits. A well-lubricated colonoscope was then inserted into the rectum. I attempted to advance the scope under direct visualization; however, the patient had an extremely tortuous colon. I was able to get to 40 cm from the anus, but despite multiple position changes and external compression applied, I was unable to pass the scope safely past this spot. A photograph of it was taken and the scope was then fully withdrawn. At 30 cm, the patient was noted to have a large polypoid lesion. This appeared yellow in color. A biopsy of it was taken and it appeared to be a lipoma. The biopsy was sent to pathology, labeled as sigmoid colon biopsy. The scope was then brought into the rectum and retroflexed to allow visualization of the anal canal opening. The hemorrhoidal tissue appeared normal and a photograph was taken. The scope was straightened out and fully withdrawn. The patient tolerated the procedure well and was taken to the PACU in stable condition. ENDOSCOPIC DIAGNOSES: 1. Diverticulosis. 2. Colon lipoma. RECOMMENDATIONS: We will follow up with the patient in clinic in 2 weeks to discuss the next steps in treatment. HERMAN HERRERA /[id number]
== END 2018-12-20 10:14 | disposition home or self-care (01) ==
LOC: MW.SDS 07:04
PROVIDERS: ATTEND Surgery
DX: K57.30 Diverticulosis of large intestine without perforation or abscess without bleeding (principal); D12.5 Benign neoplasm of sigmoid colon; K64.9 Unspecified hemorrhoids; K63.89 Other specified diseases of intestine; I10 Essential (primary) hypertension; E11.9 Type 2 diabetes mellitus without complications; E78.00 Pure hypercholesterolemia, unspecified; E66.9 Obesity, unspecified; K58.9 Irritable bowel syndrome, unspecified; Z88.1 Allergy status to other antibiotic agents; Z88.5 Allergy status to narcotic agent; Z88.6 Allergy status to analgesic agent; Z68.41 Body mass index [BMI] 40.0-44.9, adult; Z87.891 Personal history of nicotine dependence; Z79.899 Other long term (current) drug therapy
CPT/HCPCS: 45331; J2001; J2704; J7120; 00811; 88305

== ENCOUNTER 2019-01-12 09:42 | Emergency (ER) | payer MEDICARE, OTHER ==
--- NOTE | 2019-01-12 09:59 | EDM.PDOC ---
ED HPI GENERAL MEDICAL PROBLEM - General Chief Complaint: Gastrointestinal Problem Stated Complaint: SPOKE TO NURSE Time Seen by Provider: 01/12/19 09:48 - History of Present Illness INITIAL COMMENTS - FREE TEXT/NARRATIVE: HISTORY AND PHYSICAL: History of present illness: Patient is 73-year-old white female with history of diverticulitis who presents with a concern of mild abdominal discomfort this is lower with associated blood per rectum she states this is a typical flareup of her diverticulitis and she is wanting to initiate antibiotics empirically. She is followed up with general surgery locally and there considering surgical intervention due to the extensive nature patient denies fever chills vomiting or other complaints and is declining any diagnostics lab or imaging. Patient has been treated in the past with Flagyl and Levaquin she reports allergy to Cipro but denies having had any issues with Levaquin and states her allergy to Cipro was bodyaches. Review of systems: As per history of present illness and below otherwise all systems reviewed and negative. Past medical history: As per history of present illness and as reviewed below otherwise noncontributory. Surgical history: As per history of present illness and as reviewed below otherwise noncontributory. Social history: No reported history of drug or alcohol abuse. Family history: As per history of present illness and as reviewed below otherwise noncontributory. Physical exam: HEENT: Atraumatic, normocephalic, pupils reactive, negative for conjunctival pallor or scleral icterus, mucous membranes moist, throat clear, neck supple, nontender, trachea midline. Lungs: Clear to auscultation, breath sounds equal bilaterally, chest nontender. Heart: S1S2, regular, negative for clicks, rubs, or JVD. Abdomen: Soft, nondistended, mild lower abdominal tenderness no localized tenderness rebound or guarding Negative for masses or hepatosplenomegaly. Negative for costovertebral tenderness. Pelvis: Stable nontender. Genitourinary: Deferred. Rectal: Deferred. Extremities: Atraumatic, negative for cords or calf pain. Neurovascular unremarkable. Neuro: Awake, alert, oriented. Cranial nerves II through XII unremarkable. Cerebellum unremarkable. Motor and sensory unremarkable throughout. Exam nonfocal. Diagnostics: Deferred Therapeutics: None Impression: #1 diverticulitis Definitive disposition and diagnosis as appropriate pending reevaluation and review of above. Left Lower Abdomen Pain Score (Numeric/FACES): 5 - Related Data Allergies Allergy/AdvReac Type Severity Reaction Status Date / Time ciprofloxacin HCl Allergy Nausea Verified 01/12/19 09:49 [From Cipro] NSAIDS (Non-Steroidal Allergy Cannot Verified 01/12/19 09:49 Anti-Inflamma Remember Home Meds: Home Meds Atenolol 25 mg PO BEDTIME 03/29/17 [History] Furosemide [Lasix] 20 mg PO DAILY 03/29/17 [History] Losartan [Cozaar] 100 mg PO QAM 03/29/17 [History] Travoprost [Travatan Z 0.004% Ophth Soln] 1 drop EYEBOTH BEDTIME 03/29/17 [ History] Cholecalciferol (Vitamin D3) [Vitamin D3] 1,000 units PO DAILY 09/01/17 [History ] Fish Oil/[place]-3 Fatty Acids [Fish Oil 1,000 MG] 1 gm PO BID 09/01/17 [History] Lutein 40 mg PO DAILY 09/01/17 [History] Omeprazole 20 mg PO QAM 09/01/17 [History] Zinc 50 mg PO DAILY 09/01/17 [History] atorvaSTATin [Lipitor] 10 mg PO BEDTIME 09/01/17 [History] Diclofenac Sodium 2 gm TOP QID PRN 12/14/18 [History] Dorzolamide HCl/Timolol Maleat [Dorzolamide-Timolol Eye Drops] 1 drop EYEBOTH BID 12/14/18 [History] Hydrocodone/Acetaminophen [Hydrocodon-Acetaminophen 5-325] 1 tab PO DAILY PRN [History] Ketamine Powder Compounded Cre 1 dose TOP ASDIRECTED PRN 12/14/18 [History] L.acidoph,Paracasei, B.lactis [Probiotic] 1 cap PO DAILY 12/14/18 [History] Ubidecarenone [Co Q-10] 120 mg PO DAILY 12/14/18 [History] Past Medical History - Past Health History Medical/Surgical History: Denies Medical/Surgical History HEENT History: Reports: Cataract, Glaucoma, Macular Degeneration, Other (See Below) Other HEENT History: uses reading glasses, gets injections into left eye every 6 weeks Cardiovascular History: Reports: High Cholesterol, Hypertension Other Cardiovascular History: feels like she has palpitations- nothing ever found with testing Respiratory History: Reports: None Gastrointestinal History: Reports: Diverticulosis, GERD, Other (See Below) Other Gastrointestinal History: recent diverticulitis Genitourinary History: Reports: Renal Calculus Other Genitourinary History: had stent placed and removed, was told she had Stage 3 kidney disease many years ago due to NSAID use 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: Musculoskeletal History: Reports: Back Pain, Chronic, Osteoarthritis Other Musculoskeletal History: chronic shoulder pain Neurological History: Reports: None Psychiatric History: Reports: None Endocrine/Metabolic History: Reports: Obesity/BMI 30+ Hematologic History: Reports: Blood Transfusion(s) Other Hematologic History: blood transfusion following hysterectomy Immunologic History: Reports: None Oncologic (Cancer) History: 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, Uterine Other Oncologic History: Endomitrial Dermatologic History: Reports: None - Infectious Disease History Infectious Disease History: Reports: Chicken Pox, Measles, Mumps - Past Surgical History Head Surgeries/Procedures: Reports: None HEENT Surgical History: Reports: Cataract Surgery GI Surgical History: Reports: Cholecystectomy, Colonoscopy Female Surgical History: 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 Biopsy, Breast Reduction, Hysterectomy Other Female Surgeries/Procedures: Breast Lumpectomy Musculoskeletal Surgical History: Reports: Hip Replacement, Knee Replacement Other Musculoskeletal Surgeries/Procedures:: bilateral partial knee replacement , right RIGOBERTO Oncologic Surgical History: Reports: Lumpectomy Social & Family History - Family History Family Medical History: Noncontributory Cardiac: Reports: Hypertension, [place] Neurological: Reports: TIA - Tobacco Use Smoking Status *Q: Never Smoker - Caffeine Use Caffeine Use: Reports: Coffee - Recreational Drug Use Recreational Drug Use: No ED ROS GENERAL - Review of Systems Review Of Systems: Comprehensive ROS is negative, except as noted in HPI. ED EXAM, GENERAL - Physical Exam Exam: See Below (See dictation) Course - Vital Signs Last Recorded V/S: Last Vital Signs Temp 36.1 C 01/12/19 09:45 Pulse 73 01/12/19 09:45 Resp 18 01/12/19 09:45 BP 153/89 H 01/12/19 09:45 Pulse Ox 97 01/12/19 09:45 Departure - Departure Time of Disposition: 09:57 Disposition: Home, Self-Care 01 Condition: Good Clinical Impression: Diverticulitis - Discharge Information Referrals: PCP,None [Primary Care Provider] - Additional Instructions: The following information is given to patients seen in the emergency department who are being discharged to home. This information is to outline your options for follow-up care. We provide all patients seen in our emergency department with a follow-up referral. The need for follow-up, as well as the timing and circumstances, are variable depending upon the specifics of your emergency department visit. If you don't have a primary care physician on staff, we will provide you with a referral. We always advise you to contact your personal physician following an emergency department visit to inform them of the circumstance of the visit and for follow-up with them and/or the need for any referrals to a consulting specialist. The emergency department will also refer you to a specialist when appropriate. This referral assures that you have the opportunity for followup care with a specialist. All of these measure are taken in an effort to provide you with optimal care, which includes your followup. Under all circumstances we always encourage you to contact your private physician who remains a resource for coordinating your care. When calling for followup care, please make the office aware that this follow-up is from your recent emergency room visit. If for any reason you are refused follow-up, please contact the [facility] emergency department at and asked to speak to the emergency department charge nurse. Alexis Pino as prescribed follow-up Gen. surgery and private medical doctor as discussed return as needed as discussed
[2019-01-12 10:07] VITALS: BP 146/73; PULSE 58
== END 2019-01-12 10:07 | disposition home or self-care (01) ==
LOC: MW.ED 09:42
DX: K57.92 Diverticulitis of intestine, part unspecified, without perforation or abscess without bleeding (principal); I10 Essential (primary) hypertension; E78.00 Pure hypercholesterolemia, unspecified; K21.9 Gastro-esophageal reflux disease without esophagitis; M19.90 Unspecified osteoarthritis, unspecified site; E66.9 Obesity, unspecified; Z68.39 Body mass index [BMI] 39.0-39.9, adult; Z90.49 Acquired absence of other specified parts of digestive tract; Z79.899 Other long term (current) drug therapy; Z88.1 Allergy status to other antibiotic agents; Z88.8 Allergy status to other drugs, medicaments and biological substances
CPT/HCPCS: 99283

== ENCOUNTER 2020-09-17 09:35 | Day surgery (SDC) | payer MEDICARE, OTHER ==
[2020-09-17] MEDS ORDERED: propofoL 50 ML ONE (10:15)
--- NOTE | 2020-09-17 10:16 | PCM.PREANE ---
Preanesthetic Assessment - Procedure Proposed Procedure: Colonoscopy - Anesthesia/Transfusion/Family Hx Anesthesia History: Prior Anesthesia Reaction (N/V) Type of Anesthesia Reaction: Excessive Nausea/Vomiting (tolerates propofol for scope without N/V) Other Type of Anesthesia Reaction Comment: "my mother and I both have problems with N/V post anesthesia" Transfusion History: Prior Transfusion Without Reaction - Review of Systems General: No Symptoms Pulmonary: No Symptoms (Quit smoking x 36yrs) Cardiovascular: No Symptoms (HTN, HLD) Gastrointestinal: No Symptoms Neurological: No Symptoms Other: Reports: None - Physical Assessment NPO Status Date: 09/15/20 NPO Status Time: 17:00 Vital Signs: Last Vital Signs Temp 97.2 F 09/17/20 09:45 Pulse 58 L 09/17/20 09:45 Resp 15 09/17/20 09:45 BP 177/82 H 09/17/20 09:45 Pulse Ox 97 09/17/20 09:45 Height: 5 ft Weight: 97.069 kg (Morbid Obesity) ASA Class: 3 Mental Status: Alert & Oriented x3 Airway Class: Mallampati = 2 Dentition: Reports: Normal Dentition Thyro-Mental Finger Breadths: 3 Mouth Opening Finger Breadths: 3 ROM/Head Extension: Full Lungs: Clear to Auscultation, Normal Respiratory Effort Cardiovascular: Regular Rate, Regular Rhythm - Allergies Allergies/Adverse Reactions: Allergies Allergy/AdvReac Type Severity Reaction Status Date / Time ciprofloxacin HCl Allergy Nausea/vomi Verified 09/14/20 13:09 [From Cipro] ting/diarrh ea - Anesthesia Plan Beta Dominick: Atenolol Med Last Dose Date: 09/16/20 Med Last Dose Time: 21:30 - Acknowledgements Anesthesia Type Planned: General Anesthesia Pt an Appropriate Candidate for the Planned Anesthesia: Yes Alternatives and Risks of Anesthesia Discussed w Pt/Guardian: Yes Pt/Guardian Understands and Agrees with Anesthesia Plan: Yes PreAnesthesia Questionnaire - Past Health History Medical/Surgical History: Denies Medical/Surgical History HEENT History: Reports: Cataract, Glaucoma, Macular Degeneration, Other (See Below) Other HEENT History: uses reading glasses, gets injections into left eye every 6 weeks Cardiovascular History: Reports: Arrhythmia, High Cholesterol, Hypertension Other Cardiovascular History: PAC's Respiratory History: Reports: None Gastrointestinal History: Reports: Diverticulosis, GERD, Other (See Below) Other Gastrointestinal History: hx colitis Genitourinary History: Reports: Renal Calculus Other Genitourinary History: was told she had Stage 3 kidney disease many years ago due to NSAID use [employer] History: Reports: Other (See Below) Other OB/BYN History: hysterectomy due to endometrial cancer Musculoskeletal History: Reports: Osteoarthritis Neurological History: Reports: None Psychiatric History: Reports: None Endocrine/Metabolic History: Reports: Obesity/BMI 30+ Hematologic History: Reports: Blood Transfusion(s) Other Hematologic History: blood transfusion following hysterectomy Immunologic History: Reports: None Oncologic (Cancer) History: 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, Uterine Other Oncologic History: hx Endomitrial cancer, breast cancer Dermatologic History: Reports: None - Infectious Disease History Infectious Disease History: Reports: Chicken Pox, Measles, Mumps - Past Surgical History Head Surgeries/Procedures: Reports: None HEENT Surgical History: Reports: Cataract Surgery Cardiovascular Surgical History: Reports: None Respiratory Surgical History: Reports: None GI Surgical History: Reports: Cholecystectomy, Colon, Colonoscopy Other GI Surgeries/Procedures: hx colon resection for chronic diverticulitis Female Surgical History: 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 Biopsy, Breast Reduction, Hys terectomy, Salpingo-Oophorectomy Other Female Surgeries/Procedures: Breast Lumpectomy Endocrine Surgical History: Reports: None Neurological Surgical History: Reports: None Musculoskeletal Surgical History: Reports: Hip Replacement, Knee Replacement, Shoulder Surgery Other Musculoskeletal Surgeries/Procedures:: bilateral partial knee replacement, right RIGOBERTO, right shoulder replacement Oncologic Surgical History: Reports: Lumpectomy, Other (See Below) Other Oncologic Surgeries/Procedures: total hysterectomy, Dermatological Surgical History: Reports: None - SUBSTANCE USE Tobacco Use Status *Q: Former Tobacco User Tobacco Use Within Last Twelve Months: No - HOME MEDS Home Medications: Home Meds Furosemide [Lasix] 20 mg PO DAILY 03/29/17 [History] Losartan [Cozaar] 100 mg PO QAM 03/29/17 [History] atenoloL [Atenolol] 25 mg PO BEDTIME 03/29/17 [History] Fish Oil/[place]-3 Fatty Acids [Fish Oil 1,000 MG] 1 gm PO BID 09/01/17 [History] Lutein 40 mg PO DAILY 09/01/17 [History] Omeprazole 20 mg PO QAM 09/01/17 [History] Zinc 50 mg PO DAILY 07/27/18 [History] atorvaSTATin [Lipitor] 10 mg PO BEDTIME 09/01/17 [History] Dorzolamide HCl/Timolol Maleat [Dorzolamide-Timolol Eye Drops] 1 drop EYEBOTH BID 12/14/18 [History] Ubidecarenone [Co Q-10] 120 mg PO DAILY 12/14/18 [History] Bimatoprost [LUMIGAN 0.01% Oph Soln] 1 drop EYEBOTH BEDTIME 09/14/20 [History] Brimonidine Tartrate [Brimonidine Tartrate 0.2% Ophth Soln] 1 drop EYELF BID 09/14/20 [History] Cholecalciferol (Vitamin D3) [Vitamin D3] 1,000 units PO DAILY 09/14/20 [History] Cyanocobalamin (Vitamin B12) [Vitamin B12] 500 mcg PO DAILY 09/14/20 [History] L.acidoph,Paracasei, B.lactis [Probiotic] 1 tab PO DAILY 09/14/20 [History] Magnesium Oxide [Magnesium] 500 mg PO DAILY 09/14/20 [History] - CURRENT (IN HOUSE) MEDS Current Meds: Current Medications Lactated Ringer's (Ringers, Lactated) 1,000 mls @ 125 mls/hr IV ASDIRECTED OPHELIA Last Admin: 09/17/20 10:11 Dose: 125 mls/hr Documented by: Sodium Chloride (Sodium Chloride 0.9% 10 Ml Syringe) 10 ml FLUSH ASDIRECTED PRN PRN Reason: Keep Vein Open Sodium Chloride (Sodium Chloride 0.9% 2.5 Ml Syringe) 2.5 ml FLUSH ASDIRECTED PRN PRN Reason: Keep Vein Open Sodium Chloride (Sodium Chloride 0.9% 10 Ml Syringe) 10 ml FLUSH ASDIRECTED PRN PRN Reason: Keep Vein Open Sodium Chloride (Sodium Chloride 0.9% 2.5 Ml Syringe) 2.5 ml FLUSH ASDIRECTED PRN PRN Reason: Keep Vein Open Sodium Chloride (Sodium Chloride 0.9% 10 Ml Sdv) 10 ml IV ASDIRECTED PRN PRN Reason: IV Use
[2020-09-17] MEDS ORDERED: fentaNYL 100 MCG/2 ML SDV ONE (10:53)
--- NOTE | 2020-09-17 11:42 | PCM.OPNOTE ---
- General Post-Op/Procedure Note Date of Surgery/Procedure: 09/17/20 Operative Procedure(s): COlonoscopy Pre Op Diagnosis: History of diverticulitis Post-Op Diagnosis: Diverticulosis, transverse colon polyp Anesthesia Technique: MARY JO Primary Surgeon: Inge Bassett Condition: Good
--- NOTE | 2020-09-17 11:48 | PCM.POSTAN ---
POST ANESTHESIA ASSESSMENT - MENTAL STATUS Mental Status: Alert, Oriented - VITAL SIGNS Vital Signs: Last Vital Signs Temp 98.2 F 09/17/20 11:33 Pulse 76 09/17/20 11:38 Resp 17 09/17/20 11:38 BP 145/70 H 09/17/20 11:38 Pulse Ox 97 09/17/20 11:38 - RESPIRATORY Respiratory Status: Respiratory Rate WNL, Airway Patent, O2 Saturation Stable - CARDIOVASCULAR CV Status: Pulse Rate WNL, Blood Pressure Stable - GASTROINTESTINAL GI Status: No Symptoms - POST OP HYDRATION Hydration Status: Adequate & Stable
--- NOTE | 2020-09-17 11:51 | PCM48HPAN ---
Post Anesthesia Note - EVALUATION WITHIN 48HRS OF ANESTHETIC Vital Signs in Normal Range: Yes Patient Participated in Evaluation: Yes Respiratory Function Stable: Yes Airway Patent: Yes Cardiovascular Function Stable: Yes Hydration Status Stable: Yes Pain Control Satisfactory: Yes Nausea and Vomiting Control Satisfactory: Yes Mental Status Recovered: Yes Vital Signs: Last Vital Signs Temp 98.2 F 09/17/20 11:33 Pulse 76 09/17/20 11:38 Resp 17 09/17/20 11:38 BP 145/70 H 09/17/20 11:38 Pulse Ox 97 09/17/20 11:38
[2020-09-17 11:56] VITALS: BP 148/75; PULSE 54
--- NOTE | 2020-09-17 20:34 | OR ---
SURGEON: INGE BASSETT MD DATE OF PROCEDURE: 09/17/2020 PREOPERATIVE DIAGNOSIS: History of diverticulitis. POSTOPERATIVE DIAGNOSES: 1. Diverticulosis. 2. Transverse colon polyp. PROCEDURE PERFORMED: Diagnostic colonoscopy with polypectomy. PRIMARY SURGEON: Inge Bassett MD ANESTHESIA: MAC. INSTRUMENT USED: Olympus colonoscope. EXTENT OF EXAM: To the cecum. PREPARATION: Good. LIMITATIONS: None. INDICATIONS FOR EXAMINATION: The patient is a 75-year-old female who last year underwent an open sigmoidectomy for recurrent diverticulitis. She was unable to have a colonoscopy done due to the inflammation within her colon. Since having the surgery, she has been doing much better. She is now here for a followup colonoscopy. I explained the procedure, expected perioperative course, and the risks. She verbalized understanding and wishes to proceed. PROCEDURE IN DETAIL: The patient was brought to the endoscopy suite and placed in the left lateral decubitus position. A time-out was completed verifying the patient's name, age, date of , allergies, and procedure to be performed. Monitored anesthesia care was induced and continuous oxygen was provided via face mask throughout the procedure. After adequate sedation was achieved, a digital rectal exam was performed. This exam was grossly normal. A well-lubricated colonoscope was inserted in the rectum and advanced under direct visualization to the level of the cecum. The patient did have some slight narrowing of the distal colon along the area of the anastomosis; however, I was able to pass my scope safely through. The cecum was identified by both visual and anatomic landmarks. A photograph was taken of the cecal cap; however, I was unable to retroflex the scope within the cecum due to looping of the scope more proximally. The scope was then fully withdrawn while examining the color, texture, anatomy, and integrity of the mucosa from the cecum to the anal canal. The patient was noted to have a small transverse colon polyp. This was removed in piecemeal fashion using a cold biopsy forceps. The patient was noted to have diverticulosis in the distal half of her colon. The anastomosis was intact. The scope was then brought into the rectum and retroflexed to allow visualization of the anal canal opening. This appeared normal and a photograph was taken. The scope was then straightened out and fully withdrawn. The cecum to anus time was 10 minutes. The patient tolerated the procedure well and was transferred to the PACU in stable condition. ENDOSCOPIC DIAGNOSES: 1. Diverticulosis. 2. Transverse colon polyp. RECOMMENDATIONS: Follow up in clinic in 2 weeks. HERMAN HERRERA /[id number]
== END 2020-09-17 12:15 | disposition home or self-care (01) ==
LOC: MW.SDS 09:35
PROVIDERS: ATTEND Surgery
DX: D12.3 Benign neoplasm of transverse colon (principal); K57.30 Diverticulosis of large intestine without perforation or abscess without bleeding; I10 Essential (primary) hypertension; E78.5 Hyperlipidemia, unspecified; E11.9 Type 2 diabetes mellitus without complications; E78.00 Pure hypercholesterolemia, unspecified; E66.9 Obesity, unspecified; Z68.41 Body mass index [BMI] 40.0-44.9, adult; Z87.891 Personal history of nicotine dependence; Z87.19 Personal history of other diseases of the digestive system
CPT/HCPCS: 45380; J2704; J3010; J7120; 00811; 88305; 99100

== ENCOUNTER 2022-06-27 11:53 | Inpatient (IN) | payer MEDICARE ==
[2022-06-27] MEDS ORDERED: Sodium Chloride 0.9% 2.5 ML Syringe FLUSH PRN (12:07)
[2022-06-27] MEDS ORDERED: Sodium Chloride 0.9% 10 ML Syringe FLUSH PRN (12:07)
[2022-06-27] MEDS ORDERED: Sodium Chloride 0.9% 1,000 ML IV ONE (12:07)
[2022-06-27] MEDS ORDERED: diphenhydrAMINE 12.5 MG/5 ML Liquid 5 ML UD Cup PO STA (12:08)
[2022-06-27] MEDS ORDERED: Aluminum Hydroxide/Magnesium Hydroxide/Simethicone XS Susp 30 ML Cup PO ONE (12:09)
[2022-06-27 12:15] LABS: HEMOGLOBIN 11.8 g/dL (12.0-16.0); MEAN CORPUSCULAR HEMOGLOBIN 29.6 pg (27.0-32.0); MEAN CORPUSCULAR HGB CONC 32.8 g/dL (31.0-37.0); MEAN CORPUSCULAR VOLUME 90.5 fL (80.0-98.0); NRBC ABSOLUTE 0 K/uL; PLATELET COUNT,PLT 86 K/uL (150-400); RED BLOOD CELL COUNT 3.98 M/uL (4.30-5.90); WHITE BLOOD CELL COUNT,WBC 11.73 K/uL (4.0-11.0)
[2022-06-27 12:17] LABS: APPEARANCE,URINE CLEAR; BILIRUBIN,URINE NEGATIVE (NEGATIVE); COLOR,URINE YELLOW; GLUCOSE,URINE NEGATIVE (NEGATIVE); KETONES,URINE NEGATIVE (NEGATIVE); LEUKOCYTE ESTERASE,URINE NEGATIVE (NEGATIVE); NITRITE,URINE NEGATIVE (NEGATIVE); OCCULT BLOOD,URINE MODERATE (NEGATIVE); PH,URINE 5.5 (5.0-8.0); PROTEIN,URINE NEGATIVE (NEGATIVE); UROBILINOGEN,URINE 0.2 EU/dL (<2.0)
[2022-06-27 12:29] LABS: BACTERIA,URINE 2+ (NEGATIVE); EPITHELIAL CELLS,URINE OCCASIONAL (NONE-FEW); RBC,URINE 0-2 (0-2/HPF); WBC,URINE 0-3 (0-5/HPF)
[2022-06-27 12:30] LABS: D-DIMER QUANTITATIVE 4.26 mg/L FEU (0.0-0.50); INR 0.98 (0.86-1.11)
[2022-06-27 12:39] LABS: BAND ABSOLUTE MAN 0.9; BAND PERCENT MAN 8 %; SEG NEUTROPHILS ABSOLUTE MAN 9.5 (1.4-5.7); SEG NEUTROPHILS PERCENT MAN 81 % (48.0-80.0)
[2022-06-27 12:40] LABS: A/G RATIO 0.4 (0.9-1.6); ALBUMIN 1.6 g/dL (3.4-5.0); BILIRUBIN TOTAL 0.6 mg/dL (0.2-1.0); CALCIUM 9.1 mg/dL (8.5-10.1); CARBON DIOXIDE,CO2 23.6 mmol/L (21.0-32.0); CREATININE 1.3 mg/dL (0.6-1.0); EST CRCL DRUG DOSING (CG) 30.8 mL/min; LYMPHOCYTES ABSOLUTE MAN 0.4 (0.6-2.4); LYMPHOCYTES PERCENT MAN 3 % (16.0-40.0); METAMYELOCYTE ABSOLUTE MAN 0.7; METAMYELOCYTE PERCENT MAN 6 %; MONOCYTES ABSOLUTE MAN 0.2 (0.0-0.8); MONOCYTES PERCENT MAN 2 % (0.0-15.0); POTASSIUM,K 5.6 mmol/L (3.5-5.1)
[2022-06-27 12:56] LABS: LACTIC ACID 2.7 mmol/L (0.4-2.0)
[2022-06-27] MEDS ORDERED: Sodium Chloride 0.9% 500 ML IV SCH (13:30)
[2022-06-27] MEDS ORDERED: Cephalexin 500 MG Cap PO ONE (13:55)
[2022-06-27 16:30] LABS: CALCIUM 8.3 mg/dL (8.5-10.1); CARBON DIOXIDE,CO2 25.2 mmol/L (21.0-32.0); CREATININE 1.2 mg/dL (0.6-1.0); EST CRCL DRUG DOSING (CG) 33.36 mL/min; POTASSIUM,K 5.2 mmol/L (3.5-5.1)
[2022-06-27] MEDS ORDERED: Nystatin Susp 100,000 Unit/ML 5 ML UD Cup PO ONE (16:53)
[2022-06-27] MEDS ORDERED: Docusate Sodium 100 MG Cap PO PRN (18:12)
[2022-06-27] MEDS: oxyCODONE 5 MG Tab PO PRN (18:22)
[2022-06-27] MEDS: Pantoprazole 40 MG in Sodium Chloride 0.9% 10 ML IVPUSH SCH (18:23)
[2022-06-27] MEDS: Enoxaparin 40 MG/0.4 ML Syringe SUBCUT SCH (18:23)
[2022-06-27] MEDS: Dexamethasone 4 MG Tab PO SCH (19:07)
[2022-06-27] MEDS: Sodium Chloride 0.9% 1,000 ML IV SCH (20:42)
[2022-06-27] MEDS: cefTRIAXone 1 GM in Sodium Chloride 0.9% 50 ML IV SCH (20:47)
[2022-06-27 21:47] LABS: LACTIC ACID 1.5 mmol/L (0.4-2.0)
[2022-06-28] MEDS: oxyCODONE 5 MG Tab PO PRN ×6 (00:03→21:28)
[2022-06-28] MEDS: Nystatin Susp 100,000 Unit/ML 5 ML UD Cup PO SCH ×4 (00:07→18:23)
[2022-06-28] MEDS: Sodium Chloride 0.9% 1,000 ML IV SCH ×3 (05:25→22:50)
[2022-06-28 05:47] LABS: MEAN CORPUSCULAR HEMOGLOBIN 29.6 pg (27.0-32.0); MEAN CORPUSCULAR HGB CONC 32.4 g/dL (31.0-37.0); MEAN CORPUSCULAR VOLUME 91.4 fL (80.0-98.0); NRBC ABSOLUTE 0 K/uL; PLATELET COUNT,PLT 72 K/uL (150-400); RED BLOOD CELL COUNT 3.72 M/uL (4.30-5.90); WHITE BLOOD CELL COUNT,WBC 10.11 K/uL (4.0-11.0)
[2022-06-28 06:04] LABS: CALCIUM 8.6 mg/dL (8.5-10.1); CARBON DIOXIDE,CO2 24.2 mmol/L (21.0-32.0); CREATININE 1.1 mg/dL (0.6-1.0); EST CRCL DRUG DOSING (CG) 30.28 mL/min; POTASSIUM,K 4.7 mmol/L (3.5-5.1)
[2022-06-28 07:01] LABS: BAND PERCENT MAN 10 %; LYMPHOCYTES ABSOLUTE MAN 0.2 (0.6-2.4); LYMPHOCYTES PERCENT MAN 2 % (16.0-40.0); METAMYELOCYTE ABSOLUTE MAN 0.2; METAMYELOCYTE PERCENT MAN 2 %; MONOCYTES ABSOLUTE MAN 0.3 (0.0-0.8); MONOCYTES PERCENT MAN 3 % (0.0-15.0); MYELOCYTE ABSOLUTE MAN 0.3; MYELOCYTE PERCENT MAN 3 %; SEG NEUTROPHILS ABSOLUTE MAN 8.1 (1.4-5.7); SEG NEUTROPHILS PERCENT MAN 80 % (48.0-80.0)
[2022-06-28] MEDS: Dexamethasone 4 MG Tab PO SCH (08:11)
[2022-06-28] MEDS: Diphenhydramine/Lidocaine/MagAl/Simethicone 119 ML Bottle PO PRN ×4 (08:54→16:49)
[2022-06-28] MEDS: Enoxaparin 40 MG/0.4 ML Syringe SUBCUT SCH (18:21)
[2022-06-28] MEDS: Pantoprazole 40 MG in Sodium Chloride 0.9% 10 ML IVPUSH SCH (18:21)
[2022-06-28] MEDS: cefTRIAXone 1 GM in Sodium Chloride 0.9% 50 ML IV SCH (20:04)
[2022-06-29] MEDS: Nystatin Susp 100,000 Unit/ML 5 ML UD Cup PO SCH ×5 (00:17→23:42)
[2022-06-29] MEDS: oxyCODONE 5 MG Tab PO PRN ×5 (05:45→21:43)
[2022-06-29 05:48] LABS: HEMATOCRIT 31.1 % (36.0-46.0); HEMOGLOBIN 9.8 g/dL (12.0-16.0); MEAN CORPUSCULAR HEMOGLOBIN 29.3 pg (27.0-32.0); MEAN CORPUSCULAR HGB CONC 31.5 g/dL (31.0-37.0); MEAN CORPUSCULAR VOLUME 92.8 fL (80.0-98.0); NRBC ABSOLUTE 0 K/uL; PLATELET COUNT,PLT 79 K/uL (150-400); RED BLOOD CELL COUNT 3.35 M/uL (4.30-5.90); WHITE BLOOD CELL COUNT,WBC 8.39 K/uL (4.0-11.0)
[2022-06-29 06:11] LABS: CALCIUM 8.2 mg/dL (8.5-10.1); CARBON DIOXIDE,CO2 23.5 mmol/L (21.0-32.0); EST CRCL DRUG DOSING (CG) 33.3 mL/min; POTASSIUM,K 4.3 mmol/L (3.5-5.1)
[2022-06-29 06:25] LABS: BAND ABSOLUTE MAN 1.1; BAND PERCENT MAN 13 %; LYMPHOCYTES ABSOLUTE MAN 0.2 (0.6-2.4); LYMPHOCYTES PERCENT MAN 2 % (16.0-40.0); SEG NEUTROPHILS ABSOLUTE MAN 6.5 (1.4-5.7)
[2022-06-29 06:26] LABS: METAMYELOCYTE ABSOLUTE MAN 0.3; METAMYELOCYTE PERCENT MAN 3 %; MONOCYTES ABSOLUTE MAN 0.1 (0.0-0.8); MONOCYTES PERCENT MAN 1 % (0.0-15.0); MYELOCYTE ABSOLUTE MAN 0.3; MYELOCYTE PERCENT MAN 4 %; SEG NEUTROPHILS PERCENT MAN 77 % (48.0-80.0)
[2022-06-29] MEDS: Sodium Chloride 0.9% 1,000 ML IV SCH ×3 (06:59→23:44)
[2022-06-29] MEDS: Dexamethasone 4 MG Tab PO SCH (08:34)
[2022-06-29] MEDS: Enoxaparin 40 MG/0.4 ML Syringe SUBCUT SCH (17:39)
[2022-06-29] MEDS: Pantoprazole 40 MG in Sodium Chloride 0.9% 10 ML IVPUSH SCH (17:40)
[2022-06-29] MEDS: cefTRIAXone 1 GM in Sodium Chloride 0.9% 50 ML IV SCH (21:44)
[2022-06-29] MEDS: Atenolol 25 MG Tab PO SCH (21:52)
[2022-06-29] MEDS: atorvaSTATin 10 MG Tab PO SCH (21:53)
[2022-06-29] MEDS: Fish Oil/Omega-3 Fatty Acids 1 Gm Cap PO SCH (21:55)
[2022-06-30] MEDS: oxyCODONE 5 MG Tab PO PRN ×6 (02:19→23:20)
[2022-06-30 05:54] LABS: HEMATOCRIT 28.7 % (36.0-46.0); HEMOGLOBIN 8.9 g/dL (12.0-16.0); MEAN CORPUSCULAR HEMOGLOBIN 29.9 pg (27.0-32.0); MEAN CORPUSCULAR VOLUME 96.3 fL (80.0-98.0); PLATELET COUNT,PLT 81 K/uL (150-400); RED BLOOD CELL COUNT 2.98 M/uL (4.30-5.90); WHITE BLOOD CELL COUNT,WBC 6.73 K/uL (4.0-11.0)
[2022-06-30] MEDS: Nystatin Susp 100,000 Unit/ML 5 ML UD Cup PO SCH ×3 (06:26→18:53)
[2022-06-30 06:27] LABS: CARBON DIOXIDE,CO2 22.1 mmol/L (21.0-32.0); CREATININE 0.8 mg/dL (0.6-1.0); EST CRCL DRUG DOSING (CG) 41.63 mL/min; POTASSIUM,K 3.7 mmol/L (3.5-5.1)
[2022-06-30 06:31] LABS: BAND PERCENT MAN 60 %; LYMPHOCYTES ABSOLUTE MAN 0.9 (0.6-2.4); LYMPHOCYTES PERCENT MAN 13 % (16.0-40.0); METAMYELOCYTE ABSOLUTE MAN 0.1; METAMYELOCYTE PERCENT MAN 1 %; MONOCYTES ABSOLUTE MAN 0.3 (0.0-0.8); MONOCYTES PERCENT MAN 5 % (0.0-15.0); MYELOCYTE ABSOLUTE MAN 0.1; MYELOCYTE PERCENT MAN 2 %; SEG NEUTROPHILS ABSOLUTE MAN 1.3 (1.4-5.7); SEG NEUTROPHILS PERCENT MAN 19 % (48.0-80.0)
[2022-06-30] MEDS: Sodium Chloride 0.9% 1,000 ML IV SCH (08:00)
[2022-06-30] MEDS: Dexamethasone 4 MG Tab PO SCH (08:30)
[2022-06-30] MEDS: Pantoprazole 40 MG in Sodium Chloride 0.9% 10 ML IVPUSH SCH (18:55)
[2022-06-30] MEDS: Enoxaparin 40 MG/0.4 ML Syringe SUBCUT SCH (18:55)
[2022-06-30] MEDS: Atenolol 25 MG Tab PO SCH (20:26)
[2022-06-30] MEDS: cefTRIAXone 1 GM in Sodium Chloride 0.9% 50 ML IV SCH (20:26)
[2022-06-30] MEDS: Fish Oil/Omega-3 Fatty Acids 1 Gm Cap PO SCH (20:28)
[2022-06-30] MEDS: atorvaSTATin 10 MG Tab PO SCH (20:28)
[2022-07-01] MEDS: Nystatin Susp 100,000 Unit/ML 5 ML UD Cup PO SCH ×4 (00:55→18:10)
[2022-07-01] MEDS: oxyCODONE 5 MG Tab PO PRN ×5 (03:28→21:47)
[2022-07-01 05:41] LABS: HEMATOCRIT 27.5 % (36.0-46.0); HEMOGLOBIN 8.9 g/dL (12.0-16.0); MEAN CORPUSCULAR HEMOGLOBIN 29.4 pg (27.0-32.0); MEAN CORPUSCULAR HGB CONC 32.4 g/dL (31.0-37.0); MEAN CORPUSCULAR VOLUME 90.8 fL (80.0-98.0); NRBC ABSOLUTE 0 K/uL; PLATELET COUNT,PLT 99 K/uL (150-400); RED BLOOD CELL COUNT 3.03 M/uL (4.30-5.90); WHITE BLOOD CELL COUNT,WBC 6.83 K/uL (4.0-11.0)
[2022-07-01 06:05] LABS: CALCIUM 8.2 mg/dL (8.5-10.1); CARBON DIOXIDE,CO2 21.7 mmol/L (21.0-32.0); CREATININE 0.7 mg/dL (0.6-1.0); EST CRCL DRUG DOSING (CG) 47.58 mL/min; POTASSIUM,K 3.9 mmol/L (3.5-5.1)
[2022-07-01 06:37] LABS: BAND ABSOLUTE MAN 1.5; BAND PERCENT MAN 22 %; LYMPHOCYTES PERCENT MAN 14 % (16.0-40.0); METAMYELOCYTE ABSOLUTE MAN 0.5; METAMYELOCYTE PERCENT MAN 7 %; MONOCYTES ABSOLUTE MAN 0.1 (0.0-0.8); MONOCYTES PERCENT MAN 1 % (0.0-15.0); MYELOCYTE ABSOLUTE MAN 0.7; MYELOCYTE PERCENT MAN 10 %; SEG NEUTROPHILS ABSOLUTE MAN 3.1 (1.4-5.7); SEG NEUTROPHILS PERCENT MAN 46 % (48.0-80.0)
[2022-07-01] MEDS: Dexamethasone 4 MG Tab PO SCH (09:15)
[2022-07-01] MEDS: Diphenhydramine/Lidocaine/MagAl/Simethicone 119 ML Bottle PO PRN ×2 (11:58→18:06)
[2022-07-01] MEDS ORDERED: Simethicone 80 MG Tab.Chew PO PRN (16:28)
[2022-07-01] MEDS: Enoxaparin 40 MG/0.4 ML Syringe SUBCUT SCH (18:06)
[2022-07-01] MEDS: Pantoprazole 40 MG in Sodium Chloride 0.9% 10 ML IVPUSH SCH (18:06)
[2022-07-01] MEDS: cefTRIAXone 1 GM in Sodium Chloride 0.9% 50 ML IV SCH (21:46)
[2022-07-01] MEDS: atorvaSTATin 10 MG Tab PO SCH (21:47)
[2022-07-01] MEDS: Atenolol 25 MG Tab PO SCH (21:47)
[2022-07-01] MEDS: Fish Oil/Omega-3 Fatty Acids 1 Gm Cap PO SCH (21:47)
[2022-07-02] MEDS: Nystatin Susp 100,000 Unit/ML 5 ML UD Cup PO SCH ×4 (01:12→18:57)
[2022-07-02] MEDS: oxyCODONE 5 MG Tab PO PRN ×2 (05:19→08:59)
[2022-07-02 05:47] LABS: HEMATOCRIT 30.2 % (36.0-46.0); HEMOGLOBIN 9.8 g/dL (12.0-16.0); MEAN CORPUSCULAR HEMOGLOBIN 30.3 pg (27.0-32.0); MEAN CORPUSCULAR HGB CONC 32.5 g/dL (31.0-37.0); MEAN CORPUSCULAR VOLUME 93.5 fL (80.0-98.0); PLATELET COUNT,PLT 121 K/uL (150-400); RED BLOOD CELL COUNT 3.23 M/uL (4.30-5.90); WHITE BLOOD CELL COUNT,WBC 8.25 K/uL (4.0-11.0)
[2022-07-02 06:03] LABS: CALCIUM 8.6 mg/dL (8.5-10.1); CARBON DIOXIDE,CO2 19.6 mmol/L (21.0-32.0); CREATININE 1.1 mg/dL (0.6-1.0); EST CRCL DRUG DOSING (CG) 30.28 mL/min; POTASSIUM,K 4.6 mmol/L (3.5-5.1)
[2022-07-02 06:47] LABS: BAND ABSOLUTE MAN 4.9; BAND PERCENT MAN 59 %; LYMPHOCYTES ABSOLUTE MAN 1.3 (0.6-2.4); LYMPHOCYTES PERCENT MAN 16 % (16.0-40.0); SEG NEUTROPHILS ABSOLUTE MAN 2.1 (1.4-5.7); SEG NEUTROPHILS PERCENT MAN 25 % (48.0-80.0)
[2022-07-02 06:48] LABS: PLATELET COUNT ESTIMATE INCREASED
[2022-07-02] MEDS: Dexamethasone 4 MG Tab PO SCH (08:18)
[2022-07-02] MEDS ORDERED: Furosemide 40 MG/4 ML VIAL IVPUSH ONE (11:07)
[2022-07-02] MEDS: Morphine 2 MG/ML SYRINGE IVPUSH PRN ×6 (11:48→21:33)
[2022-07-02] MEDS: Pantoprazole 40 MG in Sodium Chloride 0.9% 10 ML IVPUSH SCH (18:51)
[2022-07-02] MEDS: cefTRIAXone 1 GM in Sodium Chloride 0.9% 50 ML IV SCH (20:50)
[2022-07-02] MEDS ORDERED: Scopolamine 1.5 MG Transdermal Patch TRDERM PRN (21:21)
[2022-07-03] MEDS: Morphine 2 MG/ML SYRINGE IVPUSH PRN ×4 (00:06→05:49)
[2022-07-03] MEDS: Nystatin Susp 100,000 Unit/ML 5 ML UD Cup PO SCH ×2 (00:09→05:52)
[2022-07-03 03:41] VITALS: BP 98/58; PULSE 78
== END 2022-07-03 08:45 | disposition expired | DRG 683 ==
LOC: MW.ED 11:53 → MW.MS 17:13
PROVIDERS: ADMIT Internal Medicine; ATTEND Internal Medicine
DX: N17.9 Acute kidney failure, unspecified (principal); B37.0 Candidal stomatitis; C79.51 Secondary malignant neoplasm of bone; N39.0 Urinary tract infection, site not specified; Z51.5 Encounter for palliative care; C50.919 Malignant neoplasm of unspecified site of unspecified female breast; E87.5 Hyperkalemia; E86.0 Dehydration; Z66 Do not resuscitate; Z20.822 Contact with and (suspected) exposure to COVID-19; R31.9 Hematuria, unspecified; H40.9 Unspecified glaucoma; H35.30 Unspecified macular degeneration; I10 Essential (primary) hypertension; K21.9 Gastro-esophageal reflux disease without esophagitis; M19.90 Unspecified osteoarthritis, unspecified site; E66.9 Obesity, unspecified; Z96.653 Presence of artificial knee joint, bilateral; Z96.641 Presence of right artificial hip joint; Z96.611 Presence of right artificial shoulder joint; Z90.721 Acquired absence of ovaries, unilateral; Z98.890 Other specified postprocedural states; Z88.8 Allergy status to other drugs, medicaments and biological substances; Z90.710 Acquired absence of both cervix and uterus; Z90.49 Acquired absence of other specified parts of digestive tract; Z98.49 Cataract extraction status, unspecified eye; Z68.30 Body mass index [BMI] 30.0-30.9, adult
CPT/HCPCS: 36415; 51702; 71045; 71045-26; 71275; 71275-26; 80048; 80053; 81001; 83605; 84484; 85025; 85379; 85610; 93005; 93010; 97110-GP; 97163-GP; 97530-GP; 99284; A9270-GY; C9113; J0696; J1650; J1940; J2270; J3490; J7030; J7040; J8540; U0002